=== PATIENT | male | born 1975 | race Hispanic/Latino ===

== ENCOUNTER 2020-05-12 19:46 | Emergency (ER) | payer BC, SELFPAY ==
--- OUTSIDE RECORDS SUMMARY | 2020-05-12 19:48 | XMS REPORT | Summary of Care ---
:1975 Author Organization [facility] Address [address] [place] [address] Care Team Providers Name Role Phone Pcp, Patient Does Not Have A Primary Care Provider +[id number] 0-0000 Reason for Referral MRI/CAT Scan (JUAN) Status Reason Specialty Diagnoses / Referred By Referred To Procedures Contact Contact Authorized Diagnostic Diagnoses Lower abdominal pain Lower abdominal pain Ashlee, Amanda, Radiology Procedures CT ABDOMEN WO CONTRAST CHG CT SCAN,ABDOMEN,W/O CONTRAST CT ABDOMEN WO CONTRAST LENS COATER [address] [address] Reason for Visit MRI/CAT Scan (JUAN) Status Reason Specialty Diagnoses / Referred By Referred To Procedures Contact Contact Authorized Diagnostic Diagnoses Lower abdominal pain Lower abdominal pain Ashlee, Amanda, Radiology Procedures CT ABDOMEN WO CONTRAST CHG CT SCAN,ABDOMEN,W/O CONTRAST CT ABDOMEN WO CONTRAST LENS COATER [address] [address] Encounter Details Date Type Department Care Team Description 04/08/2020 Hospital Encounter [facility] Amanda Rosado, Cancel ed ([facility] LENS COATER ERROR) Computed Tomography [address] [facility] [address] [phone] Allergies No Known Allergiesdocumented as of this encounter (statuses as of 04/09/2020) Medications Medication Sig Dispensed Refills Start Date End Date Status ondansetron (ZOFRAN Take 1 tablet by 15 tablet 0 09/11/2019 Active ODT) 4 mg mouth every 8 disintegrating (eight) hours as tabletIndications: needed for Nausea Diverticulitis and Vomiting (N/V) for up to 15 doses. traMADol 50 mg Take 1 tablet by 12 tablet 0 09/11/2019 Active tabletIndications: mouth every 6 Diverticulitis (six) hours as needed for Pain (scale 7-10) for up to 12 doses. documented as of this encounter (statuses as of 04/09/2020) Active Problems No known active problemsdocumented as of this encounter (statuses as of 04/09/2020) Social History Tobacco Use Types Packs/Day Years Used Date Never Smoker Smokeless Tobacco: Never Used Sex Assigned at Date Recorded Not on file Job Start Date Occupation Industry Not on file Not on file Not on file Travel History Travel Start Travel End No recent travel history available. COVID-19 Exposure Response Date Recorded In the last month, have you been in contact with Yes 04/08/2020 8:14 AM CDT someone who was confirmed or suspected to have Coronavirus / COVID-19? documented as of this encounter Last Filed Vital Signs Not on filedocumented in this encounter Plan of Treatment Name Type Priority Associated Diagnoses Order S chedule CT ABDOMEN WO CONTRAST IMAGING JUAN Lower abdominal pa in 1 Occurrences starting 04/08/2020 unti l 04/08/2020 Health Maintenance Due Date Last Done Comments DTaP,Tdap,and Td Vaccines (1 - 1988 Tdap) Depression Screening 1989 INFLUENZA VACCINE (#1) 2020 PNEUMOCOCCAL 0-64 YEARS COMBINED Aged Out No longer eligible based on SERIES patient's age to complete this topic documented as of this encounter Results Not on filedocumented in this encounter Visit Diagnoses Diagnosis Lower abdominal pain Abdominal pain, other specified site documented in this encounter Insurance Payer Benefit Plan Subscriber ID Effective Dates Phone Address Type / Group [id number] 2020-Prese [phone] [address] PPO/POS [place] [id number] [place] [address] documented as of this encounter
--- OUTSIDE RECORDS SUMMARY | 2020-05-12 19:48 | XMS REPORT | Continuity of Care Document ---
:1975 Author Organization [facility] t Address [address] [place] [address] Care Team Providers Name Role Phone Pcp, Does Not Have A Attending Clinician Lab, Fam Pob I Attending Clinician Unavailable Pob1, Care Clinic Attending Clinician Unavailable Problems This patient has no known problems. Allergies, Adverse Reactions, Alerts This patient has no known allergies or adverse reactions. Medications This patient has no known medications. Procedures This patient has no known procedures. Encounters Start End Encounter Admission Attending Care Care Encounter Source Date/Time Date/Time Type Type Clinicians Facility Department ID 2020-05-03 2020-05-03 Telephone [facility] [id number] 00:00:00 00:00:00 Patient JENA [id number] Does Not [facility] [id number] Have A [id number] 2020-05-02 2020-05-02 Laboratory Lab, [place] [id number] 16:42:03 17:02:03 Only Fam Pob I [facility] [id number] [place] [id number] Professio [phone] nal [address] 2020-04-13 2020-04-13 Telephone Pob1, Acute [facility] [id number] 00:00:00 00:00:00 [facility] [id number] [place] [id number] Professio [phone] nal [address] 2020-04-08 2020-04-11 Urgent Pob1, Acute [facility] [id number] 07:56:12 08:18:46 [facility] [id number] [place] [id number] [facility] [phone] [facility] [address] Results This patient has no known results.
--- OUTSIDE RECORDS SUMMARY | 2020-05-12 19:48 | XMS REPORT | Summary of Care ---
:1975 Author Organization [facility] Address [address] [place] [address] Care Team Providers Name Role Phone Pcp, Patient Does Not Have A Primary Care Provider +1-000-00 0-0000 Reason for Referral MRI/CAT Scan (JUAN) Status Reason Specialty Diagnoses / Referred By Referred To Procedures Contact Contact New Request Diagnostic Diagnoses Lower abdominal pain Anene, Amanda, Radiology Procedures CT ABDOMEN PELVIS WO CONTRAST TOOL AND DIE REPAIR [address] [address] MRI/CAT Scan (JUAN) Status Reason Specialty Diagnoses / Referred By Referred To Procedures Contact Contact Closed Diagnostic Diagnoses Lower abdominal pain Lower abdominal pain Anene, Amanda, Radiology Procedures CT ABDOMEN WO CONTRAST CHG CT SCAN,ABDOMEN,W/O CONTRAST CT ABDOMEN WO CONTRAST TOOL AND DIE REPAIR [address] [address] Reason for Visit Reason Comments Diarrhea x3 days Sore Throat x3 days Abdominal Pain x3 days Encounter Details Date Type Department Care Team Description 04/08/2020 Urgent Care [facility] Family Catrachita León PA [facility] [place] [address] Suspected Covid-19 Virus Infection (Prim elizabeth Dx); [facility] [place] [facility] [address], Acute Care Clinic Sore throat; [address] [place] [address] Diarrhea, unspecified type; [place] [address] Allergies No Known Allergiesdocumented as of this encounter (statuses as of 04/08/2020) Medications Medication Sig Dispensed Refills Start Date [...] as of this encounter (statuses as of 04/08/2020) Active Problems No known active problemsdocumented as of this encounter (statuses as of 04/08/2020) Social History Tobacco Use Types Packs/Day Years [...] of this encounter Last Filed Vital Signs Vital Sign Reading Time Taken Comments Blood Pressure 106/69 04/08/2020 8:16 AM CDT Pulse 61 04/08/2020 8:16 AM CDT Temperature 36.7 C (98 F) 04/08/2020 8:16 AM CDT Respiratory Rate 16 04/08/2020 8:16 AM CDT Oxygen Saturation 100% 04/08/2020 8:16 AM CDT Inhaled Oxygen Concentration - - Weight 68 kg (150 lb) 04/08/2020 8:16 AM CDT Height 172.7 cm (5' 8") 04/08/2020 8:16 AM CDT Body Mass Index 22.81 04/08/2020 8:16 AM CDT documented in this encounter Patient Instructions Patient InstructionsAmanda Rosado FNP - 04/08/2020 8:00 AM CDT Patient Education Treating Diarrhea Diarrhea happens when you have loose, watery, or frequent bowel movements. It is a common problem with many causes. Most cases of diarrhea clear up on their own. But certain cases may need treatment. Be sure to see your healthcare providerif your symptoms don't get better in a few days. Getting relief Treatment of diarrhea depends on its cause. Diarrhea caused by bacterial or parasite infection is often treated with antibiotics. Diarrhea caused by other factors, such as a stomach virus, often improves with simple home treatment. The tips below may also help ease your symptoms. Drink plenty of fluids. This helps prevent too much fluid loss (dehydration). Water, clear soups,and electrolyte solutions are good choices. Don't take alcohol, coffee, tea, or milk. These can irritate your intestines andmake symptoms worse. Suck on ice chips if drinking makes you queasy. Return to your normal diet slowly. You may want to eat bland foods at first, such as rice and toast. Also, you may need to stay away from certain foods for a while, such as dairy products. These canmake symptoms worse. Ask yourhealthcare providerif there are any other foods you should stay away from. If you were prescribed antibiotics, take them as directed. Don't take anti-diarrhea medicines without asking yourproviderfirst. Call your healthcare provider Call your healthcare provider if you have any of the following: A fever of 100.4 F ( 38.0C) or higher, or as directed by your provider Chills Severe pain Worsening diarrhea or diarrhea for more than 2 days Bloody vomit or stool Signs of dehydration (dizziness, dry mouth and tongue, rapid pulse, dark urine) Mamina Shkola last reviewed this educational content on 03/07/201919991767-5684 [employer]. [address] [place] [address]. All rights reserved. This information is not intended as a substitute for professional medical care. Always follow your healthcare professional's instructions. Patient Education Self-Care for Sore Throats Sore throats happen for many reasons, such as colds, allergies, cigarette smoke, air pollution, and infections caused by viruses or bacteria. In any case, your throat becomes red and sore. Your goal for self-care is to reduce your discomfort while giving your throat a chance to heal. Moisten and soothe your throat Tips include the following: Try a sip of water first thing after waking up. Keep your throat moist by drinking6 or more glasses of clear liquids every day. Run a cool-air humidifier in your room overnight. Stay away from cigarette smoke. Check the air quality index,if air pollution gives you a sore throat. On high pollution days, tryto limit outdoor time. Suck on throat lozenges, cough drops, hard candy, ice chips, or frozen fruit- juice bars. Use the sugar-free versions if your diet or medical condition requires them. Gargle to ease irritation Gargling every hour or2 can ease irritation. Try gargling with1 of these solutions: 1/4teaspoon of salt in1/2 cup of warm water An zfxq-jon-vfunaje anesthetic gargle Use medicine for more relief Cuhu-ewz-rsdskye medicine can reduce sore throat symptoms. Ask your pharmacist if you have questionsabout which medicine to use. To prevent possible medicine interactions, let the pharmacist know whatmedicines you take. To decrease symptoms: Ease pain with anesthetic sprays. Aspirin or an aspirin substitute also helps. Remember, never give aspirin to anyone 18 or younger. Don't take aspirin if you are alreadytaking blood thinners. For sore throats caused by allergies, try antihistamines to block the allergic reaction. Unless a sore throat is caused by a bacterial infection, antibiotics wont help you. Prevent future sore throats Prevention tips include: Stop smoking or reduce contact with secondhand smoke. Smoke irritates the tender throat lining. Limit contact with pets and with allergy-causing substances, such as pollen and mold. Wash your hands often when youre around someone with a sore throat or cold. This will keep viruses or bacteria from spreading. Limit outdoor time when air pollution is bad. Dont strain your vocal cords. When to call your healthcare provider Contact your healthcare provider if you have: Fever of 100.4F (38.0C) or higher, or as directed by your healthcare provider White spots on the throat Great Trouble swallowing A skin rash Recent exposure to someone else with strep bacteria Severe hoarseness and swollen glands in the neck or jaw Call 911 Call 911 if any of the following occur: Trouble breathing or catching your breath Drooling and problems swallowing Wheezing Unable to talk Feeling dizzy or faint Feeling of doom Mamina Shkola last reviewed this educational content on 06/07/201919993294-6795 [employer]. [address] [place] [address], [place] [address]. All rights reserved. This information is not intended as a substitute for professional medical care. Always follow your healthcare professional's instructions. documented in this encounter Progress Notes Amanda Rosado FNP - 04/08/2020 8:00 AM CDT Cc: Chief Complaint Patient presents with Diarrhea x3 days Sore Throat x3 days Abdominal Pain x3 days [place] Trivedi is a 44 year old male. Patient has a hx of diverticulitis, here with diarrhea, 2-3 loose stools per day with abdominal cramping. He also has some sore throat for about 4 day started as itchy throat, with no fever, chills, difficulty swallowing or any other associated symptoms. He has been in contact with someone with covid,and is here to also rule that out. Diarrhea Quality: Semi-solid Onset quality: Gradual Number of episodes: 2-3 Duration: 3 days Timing: Intermittent Progression: Improving Relieved by: Nothing Worsened by: Nothing Associated symptoms: abdominal pain and myalgias Associated symptoms: no chills, no fever and no headaches Abdominal pain: Location: Generalized Quality: cramping Severity: Moderate Onset quality: Gradual Timing: Constant Progression: Unchanged Chronicity: New Myalgias: Location: Generalized Quality: Aching Severity: Mild Onset quality: Gradual Timing: Intermittent Progression: Unchanged Risk factors: sick contacts Allergies Phoenix has No Known Allergies. Medications Outpatient Medications Prior to Visit Medication Sig Dispense Refill ondansetron (ZOFRAN ODT) 4 mg disintegrating tablet Take 1 tablet by mouth every 8 (eight) hoursas needed for Nausea and Vomiting (N/V) for up to 15 doses. 15 tablet 0 traMADol 50 mg tablet Take 1 tablet by mouth every 6 (six) hours as needed for Pain (scale 7-10)for up to 12 doses. 12 tablet 0 No facility-administered medications prior to visit. Histories No past medical history on file. No past surgical history on file. Social History Socioeconomic History Marital status: Single Spouse name: Not on file Number of children: Not on file Years of education: Not on file Highest education level: Not on file Occupational History Not on file Social Needs Financial resource strain: Not on file Food insecurity: Worry: Not on file Inability: Not on file Transportation needs: Medical: Not on file Non-medical: Not on file Tobacco Use Smoking status: Not on file Substance and Sexual Activity Alcohol use: Not on file Drug use: Not on file Sexual activity: Not on file Lifestyle Physical activity: Days per week: Not on file Minutes per session: Not on file Stress: Not on file Relationships Social connections: Talks on phone: Not on file Gets together: Not on file Attends mu-ism service: Not on file Active member of club or organization: Not on file Attends meetings of clubs or organizations: Not on file Relationship status: Not on file Intimate partner violence: Fear of current or ex partner: Not on file Emotionally abused: Not on file Physically abused: Not on file Forced sexual activity: Not on file Other Topics Concern Not on file Social History Narrative Not on file No family history on file. Review of Systems Constitutional: Negative. Negative for chills, fatigue and fever. HENT: Positive for sore throat. Negative for trouble swallowing and voice change. Respiratory: Negative. Negative for cough, chest tightness, shortness of breath and wheezing. Cardiovascular: Negative. Negative for chest pain and palpitations. Gastrointestinal: Positive for abdominal pain and diarrhea. Musculoskeletal: Positive for myalgias. Neurological: Negative. Negative for syncope, weakness, light-headedness and headaches. Psychiatric/Behavioral: Negative. Endocrine: Endocrine negative Vital Signs BP 106/69 (BP Location: Left arm, Patient Position: Sitting, BP CUFF SIZE: Adult Medium) | Pulse 61 | Temp 36.7 C (98 F) (Oral) | Resp 16 | Ht 5' 8" (1.727 m) | Wt 150 lb (68 kg) | SpO2 100%| BMI 22.81 kg/m Physical Exam Constitutional: He is oriented to person, place, and time. He appears well- developed. No distress. HENT: Head: Normocephalic. Right Ear: Hearing, tympanic membrane, external ear and ear canal normal. Left Ear: Hearing, tympanic membrane, external ear and ear canal normal. Nose: Nose normal. Right sinus exhibits no frontal sinus tenderness. Left sinus exhibits no maxillary sinus tenderness and no frontal sinus tenderness. Mouth/Throat: Uvula is midline, oropharynx is clear and moist and mucous membranes are normal. No oropharyngeal exudate, posterior oropharyngeal edema or posterior oropharyngeal erythema. No tonsillar exudate. Cardiovascular: Normal rate, regular rhythm, normal heart sounds and intact distal pulses. Exam reveals no gallop and no friction rub. No murmur heard. Pulmonary/Chest: Effort normal and breath sounds normal. No stridor. No respiratory distress. He hasno wheezes. He has no rales. He exhibits no tenderness. Abdominal: Soft. Bowel sounds are normal. Lymphadenopathy: Head (right side): No submental, no submandibular, no tonsillar, no preauricular and no posterior auricular adenopathy present. Head (left side): No submental, no submandibular, no tonsillar, no preauricular and no posterior auricular adenopathy present. He has no cervical adenopathy. Neurological: He is alert and oriented to person, place, and time. Skin: Skin is warm and dry. Capillary refill takes less than 2 seconds. Psychiatric: He has a normal mood and affect. Nursing note and vitals reviewed. Assessment/Plan 1. Sore throat and myalgia: POCT strep done and was negative. Dont smoke, and avoid secondhand smoke. Try lozenges OTC as directed Drink warm liquids to soothe the throat and help thin mucus. Avoid alcohol, spicy foods, and acidic drinks such as orange juice. These can irritate the throat. Gargle with warm saltwater (1 teaspoon of salt to 8 ounces of warm water). Use a humidifier to keep air moist and relieve throat dryness. Try mgnn-qhl-hkurdnp pain relievers such as acetaminophen or ibuprofen. Use as directed, and dont exceed the recommended dose. 2. Diarrhea and abdominal cramping: covid test done and pending. In the meantime, quarantine in place, treat symptoms with OTC meds, Tylenol as needed but no NSAIDs. Stay in quarantine until symptoms subsides, plus 3 days afterwards or until you hear otherwise. Follow up with your PCP as needed, and if with worsening of symptoms, any respiratory distress, go to the ER. Clinical references for Homecare instructions reviewed and copy given. 3. Abdominal pain: will get CBC, CMP, UA and culture as well as CT of the abdomen for further eval. If worse or new onset of symptoms, return to urgent care or ER. Plan of care, desired health behaviors, goals, and medication discussed with patient. Education resources provided and reviewed with AVS. Patient/guardian/family verbalized understanding & agrees to plan of care. This visit did not involve counseling and coordination that comprised more than 50% of the visit time. If applicable, the [facility] database was accessed to review any controlled substance prescription claims data. The [employer] prescription claims data in [employer] was reviewed to assess patient compliance with the medication treatment plan. documented in this encounter Plan of Treatment Date Type Specialty Care Team Description 04/08/2020 Hospital Encounter Radiology Nehemiah Rosado FNP Arrived [address] [place] [id number] Name Type Priority Associated Diagnoses Order S chedule COVID-19 (PCR MOLECULAR LAB Routine Suspected Covid-1 9 Expected: 04/08/2020, TESTING) Virus Infection Expires: 12/2020 CBC WITH DIFF LAB STAT Lower abdominal pain Expect ed: 04/08/2020, Expires: 2020 COMP. METABOLIC PANEL LAB Routine Lower abdominal yumiko n Ordered: 04/08/2020 ([id number]) URINALYSIS LAB Routine Lower abdominal pain Expecte d: 04/08/2020, Expires: 2020 URINE CULTURE LAB Routine Lower abdominal pain Ordere d: 04/08/2020 CT ABDOMEN WO CONTRAST IMAGING JUAN Lower abdominal pa in Expected: 04/08/2020, Expires: 2020 CT ABDOMEN PELVIS WO IMAGING JUAN Lower abdominal pain Expected: 04/08/2020, CONTRAST Expires: 2020 Health Maintenance Due Date Last Done Comments DTaP,Tdap,and Td Vaccines (1 - 1988 Tdap) Depression Screening 1989 INFLUENZA VACCINE (#1) 2020 PNEUMOCOCCAL 0-64 YEARS COMBINED Aged Out No longer eligible based on SERIES patient's age to complete this topic documented as of this encounter Procedures Procedure Name Priority Date/Time Associated Diagnosis Comme nts POCT GRP A STREP Routine 04/08/2020 8:32 AM Sore throat Resu lts for this (MOLECULAR) CDT procedure are i n the results section. documented in this encounter Results POCT GRP A STREP (MOLECULAR) (04/08/2020 8:32 AM CDT) Pathologist Sig nature POCT GP A STREP neg Negative - Negative Specimen Swab - THROAT documented in this encounter Visit Diagnoses Diagnosis Suspected Covid-19 Virus Infection - Zoë العراقي Sore throat Acute pharyngitis Diarrhea, unspecified type Lower abdominal pain Abdominal pain, other specified site documented in this encounter Insurance Payer Benefit Plan Subscriber ID Effective Dates Phone Address Type / Group BCBS [facility] [id number] 2020-Mila [phone] [address] PPO/POS [facility] [id number] [place] [address] documented as of this encounter
--- OUTSIDE RECORDS SUMMARY | 2020-05-12 19:48 | XMS REPORT | Summary of Care ---
:1975 Author Organization [facility] Address [address] [place] [address] Care Team Providers Name Role Phone Pcp, Patient Does Not Have A Primary Care Provider +[phone] 0-0000 Reason for Referral MRI/CAT Scan (JUAN) Status Reason Specialty Diagnoses / Referred By Referred To Procedures Contact Contact New Request Diagnostic Diagnoses Lower abdominal pain Amanda Rosado, Radiology Procedures CT ABDOMEN WO CONTRAST METER SUPERVISOR [address] [place] [phone] Reason for Visit Reason Comments Diarrhea x3 days Sore Throat x3 days Abdominal Pain x3 days Encounter Details Date Type Department Care Team Description 04/08/[address] [facility] Family Catrachita León PA [address] [place] [address] Suspected Covid-19 Virus Infection (Prim elizabeth Dx); [facility], Acute Care Clinic Sore throat; [address] [place] [address] Diarrhea, unspecified type; Drive [place] [address] Allergies No Known Allergiesdocumented as [...] mouth and tongue, rapid pulse, dark urine) [employer] last reviewed this educational content on 03/07/201919991151-0516 The [employer]. [address] [place] [address]. All rights reserved. This information is not [...] salt in1/2 cup of warm water An zbds-fwl-fhphzyd anesthetic gargle Use medicine for more relief Svmi-uui-oygwjzv medicine can reduce sore throat symptoms. Ask [...] Feeling dizzy or faint Feeling of doom Ver[employer] last reviewed this educational content on 06/07/201919992365-4907 The [employer]. [address] [place] [address], [place] [address]. All rights reserved. This information is not intended as a substitute for professional medical care. Always follow your healthcare professional's instructions. documented in this encounter Progress Notes Amanda oRsado FNP - 04/08/2020 8:00 AM CDT Cc: [...] file Gets together: Not on file Attends congregational service: Not on file Active member of [...] air moist and relieve throat dryness. Try nwaz-nzn-erprubr pain relievers such as acetaminophen or ibuprofen. [...] of the visit time. If applicable, the [facility] database was accessed to review any controlled substance prescription claims data. The [employer] prescription claims data in [place] was reviewed to assess patient compliance with the medication treatment plan. documented in this encounter Plan of Treatment Name Type Priority Associated Diagnoses Order S chedule COVID-19 (PCR MOLECULAR LAB Routine Suspected Covid-1 9 Expected: 04/08/2020, TESTING) Virus Infection Expires: 12/2020 CBC WITH DIFF LAB STAT Lower abdominal pain Expect ed: 04/08/2020, Expires: 2020 COMP. METABOLIC PANEL LAB Routine Lower abdominal yumiko n Ordered: 04/08/2020 ([id number]) URINALYSIS LAB Routine Lower abdominal pain Expecte d: 04/08/2020, Expires: 2020 URINE CULTURE LAB Routine Lower abdominal pain Ordere d: 04/08/2020 CT ABDOMEN WO CONTRAST IMAGING JUAN Lower abdominal pa in Expected: 04/08/2020, Expires: 2020 Health Maintenance Due Date Last [...] Diagnosis Suspected Covid-19 Virus Infection - Zoë malcom Sore throat Acute pharyngitis Diarrhea, unspecified type Lower abdominal pain Abdominal pain, other specified site documented in this encounter Insurance Payer Benefit Plan Subscriber ID Effective Dates Phone Address Type / Group BCBS OF [facility] [place] [id number] 2020-Prese [phone] [address] PPO/POS [place] nt 7 [id number] [place] [address] documented as of this encounter
--- OUTSIDE RECORDS SUMMARY | 2020-05-12 19:49 | XMS REPORT | Summary of Care ---
:1975 Author [address] [facility] Address [address] [place] [address] Care Team Providers Name Role Phone Pcp, Patient Does Not Have A Primary Care Provider +1-000-00 0-0000 Reason for Referral MRI/CAT Scan (JUAN) Status Reason Specialty Diagnoses / Referred By Referred To Procedures Contact Contact Closed Diagnostic Diagnoses Lower abdominal pain Lower abdominal pain Anene, Amanda, Radiology Procedures CT ABDOMEN PELVIS WO CONTRAST CHG CT SCAN,ABDOMENT AND PELVIS,W/O CONTRAST CT ABDOMEN PELVIS WO CONTRAST BRICK GRADER [address] [phone] MRI/CAT Scan (JUAN) Status Reason Specialty Diagnoses / Referred By Referred To Procedures Contact Contact Authorized Diagnostic Diagnoses Lower abdominal pain Lower abdominal pain Anene, Amanda, Radiology Procedures CT ABDOMEN WO CONTRAST CHG CT SCAN,ABDOMEN,W/O CONTRAST CT ABDOMEN WO CONTRAST BRICK GRADER [address] [address] Reason for Visit Reason Comments Diarrhea x3 days Sore Throat x3 days Abdominal Pain x3 days Encounter Details Date Type Department Care Team Description 04/08/2020 Urgent Care [facility] Family Catrachita León PA [address] [place] [address] [place] [address] Suspected Covid-19 Virus Infection (Prim elizabeth Dx); [place] [address], Acute Care Clinic Sore throat; [address] [place] [address] Diarrhea, unspecified type; Drive Lower abdominal pain; [place], [place] Acute diverticu litis [phone] Allergies No Known Allergiesdocumented as of this encounter (statuses as of 04/11/2020) Medications Medication Sig Dispensed Refills Start Date End Date Status ondansetron (ZOFRAN Take 1 tablet by 15 tablet 0 09/11/2019 Active ODT) 4 mg mouth every 8 disintegrating (eight) hours as tabletIndications: needed for Diverticulitis Nausea and Vomiting (N/V) for up to 15 doses. traMADol 50 mg Take 1 tablet by 12 tablet 0 09/11/2019 Active tabletIndications: mouth every 6 Diverticulitis (six) hours as needed for Pain (scale 7-10) for up to 12 doses. amoxicillin-clavulanat Take 1 tablet by 20 tablet 0 04/11/2020 04/21/2020 Active e (AUGMENTIN) 875-125 mouth 2 (two) mg per times daily for tabletIndications: 10 days. Acute diverticulitis documented as of this encounter (statuses as of 04/11/2020) Active Problems No known active problemsdocumented as of this encounter (statuses as of 04/11/2020) Social History Tobacco Use Types Packs/Day Years [...] in this encounter Patient Instructions Patient InstructionsAmanda Rosado, BRICK GRADER - 04/08/2020 8:00 AM CDT Patient Education [...] mouth and tongue, rapid pulse, dark urine) [employer] last reviewed this educational content on 03/07/201919996370-6957 The [employer]. [address] [place] [address], [place] [address]. All rights reserved. This information is not [...] salt in1/2 cup of warm water An wsnt-fsd-fcmpngc anesthetic gargle Use medicine for more relief Hdjg-two-eqftdse medicine can reduce sore throat symptoms. Ask [...] Feeling dizzy or faint Feeling of doom [employer] last reviewed this educational content on 06/07/201919990012-5658 [employer]. [address] [place] [address]. All rights reserved. This information is not [...] file Gets together: Not on file Attends gnosticism service: Not on file Active member of [...] air moist and relieve throat dryness. Try kapx-hal-zirbvzn pain relievers such as acetaminophen or ibuprofen. [...] of the visit time. If applicable, the [place] [employer] database was accessed to review any controlled substance prescription claims data. The [employer] prescription claims data in [email or web address] was reviewed to assess patient compliance with the medication treatment plan. documented in this encounter Plan of Treatment Name Type Priority Associated Diagnoses Order S chedule CBC WITH DIFF LAB STAT Lower abdominal pain Expect ed: 04/08/2020, Expires: 2020 COMP. METABOLIC PANEL LAB Routine Lower abdominal yumiko n Ordered: 04/08/2020 ([id number]) URINALYSIS LAB Routine Lower abdominal pain Expecte [...] procedure are i n the results section. COVID-19 (PCR Routine 04/08/2020 8:13 AM Suspected Covid-19 R esults for this MOLECULAR TESTING) CDT Virus Infection proced ure are in the results section. documented in this encounter Results CT ABDOMEN PELVIS WO CONTRAST (04/08/2020 9:59 AM CDT) Specimen Impressions Performed At PACS/VR/DOSE Findings of acute diverticulitis at the sigmoid colon. No extraluminal gas or fluid collection. Preliminary Report Dictated by Resident: Melvin Braga I, Kallie Cisneros MD., have reviewed this study and agree with the above report. Narrative Performed At EXAM: CT ABDOMEN AND PELVIS WITHOUT CONT RAST PACS/VR/DOSE HISTORY: Lower abdominal pain. Diverticu litis suspected. COMPARISON: CT Abdomen Pelvis with intra vpayof4709/11/2019. DOSE: Total exam DLP [243] mGy-cm TECHNIQUE AND FINDINGS: Contiguous axial imaging from the level of the lung bases through the pubic symphysis was pe rformed without the intravenous administration of contrast. Coronal and sagittal reconstructions were obtained. Auto mA and/or iterative rec onstruction were used to reduce radiation dose. FINDINGS: LOWER THORAX: The lungs bases are clear. No cardiomegaly. LIVER: No focal hepatic lesions. Kristine l liver contour. GALLBLADDER AND BILIARY TREE: No biliary ductal dilati on. No gallbladder wall thickening. SPLEEN: No splenomegaly. PANCREAS: No ductal dilation or masses. ADRENAL GLANDS: No adrenal nodules. KIDNEYS: No hydronephrosis, stones, or m asses. PERITONEUM AND RETROPERITONEUM: No free air or fluid. LYMPH NODES: No lymphadenopathy. GI TRACT: No dilated bowel. Sigmoid colon diverticulosis with se gment circumferential mural thickening with pericolonic inflammatory strandi ng, consistent with acute diverticulitis. The appendix is air-filled and mildly di stended and without significant periappendiceal inflammatory stranding. PELVIS/BLADDER: The urinary bladder is mildly distende d and the ahmdai are not significantly thickened with regard to the observed degree of distention. VESSELS: Unremarkable. BONES AND SOFT TISSUES: No suspicious ly tic or sclerotic bony lesions. A 2.2 cm mixed sclerotic and lytic lesio n within the right ilium, not significantly changed from comparison. T his lesion demonstrates a narrow zone of transition. This lesion may repr esent a bone island or fibrous dysplasia. Procedure Note [facility], Radiant Results Inft User - 2019 7:05 PM CDT EXAM: CT ABDOMEN AND PELVIS WITHOUT CONTRAST HISTORY: Lower abdominal pain. Diverticu litis suspected. COMPARISON: CT Abdomen Pelvis with intra duuzro3909/11/2019. DOSE: Total exam DLP [243] mGy-cm TECHNIQUE AND FINDINGS: Contiguous axial imaging from the level of the lung bases through the pubic symphysis was pe rformed without the intravenous administration of contrast. Coronal and sagittal reconstructions were obtained. Auto mA and/or iterative judi nstruction were used to reduce radiation dose. FINDINGS: LOWER THORAX: The lungs bases are clear. No cardiomegaly. LIVER: No focal hepatic lesions. Normal liver contour. GALLBLADDER AND BILIARY TREE: No biliary ductal dilation. No gallbladder wall thickening. SPLEEN: No splenomegaly. PANCREAS: No ductal dilation or masses. ADRENAL GLANDS: No adrenal nodules. KIDNEYS: No hydronephrosis, stones, or m asses. PERITONEUM AND RETROPERITONEUM: No free air or fluid. LYMPH NODES: No lymphadenopathy. GI TRACT: No dilated bowel. Sigmoid colon divertic ulosis with segment circumferential mural thickening with pericolonic inflam matory stranding, consistent with acute diverticulitis. The appendix is air-filled and mildly di stended and without significant periappendiceal inflammatory stranding. PELVIS/BLADDER: The urinary bladder is m ildly distended and the ahmadi are not significantly thickened with regard to the observed degree of distention. VESSELS: Unremarkable. BONES AND SOFT TISSUES: No suspicious ly tic or sclerotic bony lesions. A 2.2 cm mixed sclerotic and lytic lesio n within the right ilium, not significantly changed from comparison. T his lesion demonstrates a narrow zone of transition. This lesion may repr esent a bone island or fibrous dysplasia. IMPRESSION Findings of acute diverticulitis at the sigmoid colon. No extraluminal gas or fluid collection. Preliminary Report Dictated by Resident: Melvin Braga I, Kallie Cisneros MD., have reviewed this study and agree with the above report. Performing Organization Address City/State/Zipcode Phone Number PACS/VR/DOSE POCT GRP A STREP (MOLECULAR) (04/08/2020 8:32 AM CDT) Pathologist Sig nature POCT GP A STREP neg Negative - Negative Specimen Swab - THROAT COVID-19 (PCR MOLECULAR TESTING) (04/08/2020 8:13 AM CDT) Pathologist Sig [facility] SARS-CoV-2 PCR Not Detected Not Detected [facility] Specimen Swab - NASOPHARYNGEAL SWAB Narrative Performed At [facility] SARS-CoV-2 Assay is a real-time RT-PCR test [facility] intended for the qualitative detection of RNA from SARS-CoV-2 from nasopharyngeal (SURVEYOR GEOPHYSICAL PROSPECTING) specimens. It is u sed under Emergency Use Authorization (EUA) by FDA. A positive result is indicative of the presence of SARS-CoV-2 RNA. Clinical correlation with patient hi story and other diagnostic information is necessary to deter mine patient infection status. A negative (Not Detected) result does not preclude SARS-CoV-2 infection. Clinical correlation with patien t history and other diagnostic information should be use d in patient management decisions. Invalid: Please collect a new specimen for repeat mechelle ent testing if clinically indicated. Performing Organization Address City/State/Zipcode Phone Number [facility] CLIA: [id number], [address] [place], [place] [address] [facility] documented in this encounter Visit Diagnoses Diagnosis Suspected Covid-19 Virus Infection - Zoë العراقي Sore throat Acute pharyngitis Diarrhea, unspecified type Lower abdominal pain Abdominal pain, other specified site Acute diverticulitis documented in this encounter Insurance Payer Benefit Plan Subscriber ID Effective Dates Phone Address Type / Group [facility] [id number] 2020-Prese [phone] [address] PPO/POS [place] nt 7 [id number] [place] [address] documented as of this encounter
--- OUTSIDE RECORDS SUMMARY | 2020-05-12 19:49 | XMS REPORT | Summary of Care ---
:1975 Author Organization [facility] Address [address] [place] [address] Care Team Providers Name Role Phone Pcp, Patient Does Not Have A Primary Care Provider +1-000-00 0-0000 Reason for Visit Reason Comments Exposure Encounter Details Date Type Department Care Team Description 05/02/2020 Laboratory Only [facility] Family Nehemiah Rosado, CAREER DEVELOPMENT ASSOCIATE [address] [address] Suspected Covid-19 Medicine - [facility], Adc Fam Pob I Virus Infection [address] [place] [address] (Primary D x) [place] [address] Allergies No Known Allergiesdocumented as of this encounter (statuses as of 05/02/2020) Medications Medication Sig Dispensed Refills Start Date [...] as of this encounter (statuses as of 05/02/2020) Active Problems No known active problemsdocumented as of this encounter (statuses as of 05/02/2020) Social History Tobacco Use Types Packs/Day Years [...] (PCR MOLECULAR LAB Routine Suspected Covid-1 9 Virus Expected: 05/02/2020, TESTING) Infection Expires: 2020 Health Maintenance Due Date Last Done Comments DTaP,Tdap,and Td Vaccines (1 - 1988 Tdap) Depression Screening 1989 INFLUENZA VACCINE (#1) 2020 PNEUMOCOCCAL 0-64 YEARS COMBINED Aged Out No longer eligible based on SERIES patient's age to complete this topic documented as of this encounter Results Not on filedocumented in this encounter Visit Diagnoses Diagnosis Suspected Covid-19 Virus Infection - [facility] documented in this encounter Additional Health Concerns Infection Onset Date Last Indicated Resolved Time COVID-19 Rule Out 05/02/2020 05/02/2020 documented as of this encounter Insurance Payer Benefit Plan Subscriber ID Effective Dates Phone Address Type / Group BCBS [facility] [id number] 2020-Prese [phone] [address] PPO/POS [place] nt 7 [id number] [place] [address] documented as of this encounter
--- OUTSIDE RECORDS SUMMARY | 2020-05-12 19:49 | XMS REPORT | Summary of Care ---
:1975 Author Organization [facility] Address [address] [place] [address] Care Team Providers Name Role Phone Pcp, Patient Does Not Have A Primary Care Provider +1-000-00 0-0000 Reason for Visit Reason Comments Results Encounter Details Date Type Department Care Team Description 05/03/2020 Telephone [facility] Pcp, Patient Does Not Results [address] [facility] [place] [address] 301 [facility] [phone] [place], [place] [address] Allergies No Known Allergiesdocumented as of this encounter (statuses as of 05/03/2020) Medications Medication Sig Dispensed Refills Start Date [...] as of this encounter (statuses as of 05/03/2020) Active Problems No known active problemsdocumented as of this encounter (statuses as of 05/03/2020) Social History Tobacco Use Types Packs/Day Years [...] filedocumented in this encounter Plan of Treatment Health Maintenance Due Date Last Done Comments DTaP,Tdap,and Td Vaccines (1 - 1988 Tdap) Depression Screening 1989 INFLUENZA VACCINE (#1) 2020 PNEUMOCOCCAL 0-64 YEARS COMBINED Aged Out No longer eligible based on SERIES patient's age to complete this topic documented as of this encounter Results Not on filedocumented in this encounter Additional Health Concerns Infection Onset Date Last Indicated Resolved Time COVID-19 Rule Out 05/02/2020 05/02/2020 05/03/2020 1: 55 PM CDT COVID-19 Confirmed 05/02/2020 05/02/2020 documented as of this encounter Insurance Payer Benefit Plan Subscriber ID Effective Dates Phone Address Type / Group BCBS OF [facility] [id number] 2020-[place] [phone] [address] PPO/POS [facility] 7 [id number] [place] [address] documented as of this encounter
--- OUTSIDE RECORDS SUMMARY | 2020-05-12 19:49 | XMS REPORT | Summary of Care ---
:1975 Author Organization [facility] Address [address] [place] [address] Care Team Providers Name Role Phone Pcp, [...] PELVIS,W/O CONTRAST CT ABDOMEN PELVIS WO CONTRAST ARMATURE WINDER REPAIRER [address] [address] Reason for Visit MRI/CAT Scan (JUAN) Status Reason Specialty Diagnoses / Referred By Referred To Procedures Contact Contact Closed Diagnostic Diagnoses Lower abdominal pain Lower abdominal pain Anene, Amanda, Radiology Procedures CT ABDOMEN PELVIS WO CONTRAST CHG CT SCAN,ABDOMENT AND PELVIS,W/O CONTRAST CT ABDOMEN PELVIS WO CONTRAST ARMATURE WINDER REPAIRER [address] [address] Encounter Details Date Type Department Care Team Description 04/08/2020 Hospital Encounter [facility] Nathanael Rosado, ARMATURE WINDER REPAIRER Arrived [facility] [address] Tomography [address] [place] [address] Allergies No Known Allergiesdocumented as of [...] Name Priority Date/Time Associated Diagnosis Comme nts CT ABDOMEN PELVIS JUAN 04/08/2020 9:59 AM Lower abdominal pain Results for this WO CONTRAST CDT procedure are i n the results [...] suspected. COMPARISON: CT Abdomen Pelvis with intra [id number]/11/2019. DOSE: Total exam DLP [243] mGy-cm TECHNIQUE [...] bladder is mildly distende d and the ahmadi are not significantly thickened [...] suspected. COMPARISON: CT Abdomen Pelvis with intra [id number]/11/2019. DOSE: Total exam DLP [243] mGy-cm TECHNIQUE [...] Performing Organization Address City/State/Zipcode Phone Number PACS/VR/DOSE documented in this encounter Visit Diagnoses Diagnosis Lower abdominal pain Abdominal pain, other specified site documented in this encounter Insurance Payer Benefit Plan Subscriber ID Effective Dates Phone Address Type / Group [facility] [id number] 2020-Prese [phone] [address] PPO/POS [place] nt 7 [id number] [place] [address] documented as of this encounter
--- OUTSIDE RECORDS SUMMARY | 2020-05-12 19:49 | XMS REPORT | Summary of Care ---
:1975 Author Organization [facility] Address [address] [place] [address] Care Team Providers Name Role Phone Pcp, Patient Does Not Have A Primary Care Provider +1-000-00 0-0000 Reason for Visit Reason Comments Results Encounter Details Date Type Department Care Team Description 04/13/2020 Telephone [facility] Pob1, Acute C are Clinic Results - [address] [place] [address] Allergies No Known Allergiesdocumented as of this encounter (statuses as of 04/13/2020) Medications Medication Sig Dispensed Refills Start Date [...] as of this encounter (statuses as of 04/13/2020) Active Problems No known active problemsdocumented as of this encounter (statuses as of 04/13/2020) Social History Tobacco Use Types Packs/Day Years [...] Results Not on filedocumented in this encounter Insurance Payer Benefit Plan Subscriber ID Effective Dates Phone Address Type / Group BCBS OF [facility] [id number] 2020-Prese [phone] [address] PPO/POS [facility] 7 [id number] [place] [address] documented as of this encounter
[2020-05-12] MEDS ORDERED: ONDANSETRON 4 MG/2 ML VIAL ONE (21:12)
[2020-05-12] MEDS ORDERED: MORPHINE 4 MG/ML SYR ONE (21:12)
[2020-05-12 21:25] LABS: Urine RBC <5 /HPF (NONE SEEN)
[2020-05-12 21:26] LABS: Urine Blood NEGATIVE (NEG); Urine Glucose NEGATIVE (NEG); Urine Protein NEGATIVE (NEG); Urine Specific Gravity >1.030 (1.005-1.030); Urine pH 6.5 (5.0-7.0)
[2020-05-12 21:26] LABS: Urine Bacteria NONE SEEN /HPF (NONE SEEN); Urine Culture Reflex Order NOT NEEDED; Urine Mucus 1+ /HPF (NONE SEEN)
--- NOTE | 2020-05-12 21:29 | RAD REPORT ---
EXAM DESCRIPTION: CT - Stone Protocol - 05/12/2020 9:13 pm CLINICAL HISTORY: Flank pain. ABD PAIN COMPARISON: Abdomen Pelvis W Contrast dated 05/30/2019 TECHNIQUE: Axial images were obtained without oral or IV contrast. Lack of contrast limits solid org an and vascular assessment. The lfupz-aa-nakq spans the entirety of the system partially obscuring uppermost abdomen and lung bases. Coronal reformatted images were obtained and reviewed. All CT scans are performed using dose optimization technique as appropriate and may include automated exposure control or mA/KV adjustment according to patient size. FINDINGS: The lower lung brunner are clear. Imaged portions of the liver and spleen show no suspicious findings on non-contrast imaging. The panc reas and adrenal glands are normal. No pathologic lymphadenopathy in the abdomen or pelvis. No urinary tract stones or obstructive uropathy. No bowel obstruction, free air, free fluid or abscess. Normal appendix noted.Moderate stool in the co debra with sigmoid diverticulosis. Moderate fecal retention is present in the rectosigmoid No significant bony abnormality. IMPRESSION: No urinary tract stones or obstructive uropathy. Sigmoid diverticulosis coli without diverticulitis. Moderate retained stool rectosigmoid.
[2020-05-12 21:32] LABS: Absolute Lymphocytes (CBC) 2.4 K/uL (0.7-4.9); Hematocrit 42.4 % (39.6-49.0); Lymphocytes % 32.3 % (15.3-44.8); MPV 9.2 fL (7.6-11.3); Potassium 3.8 mmol/L (3.5-5.1); RBC Red Blood Cell Count 4.87 M/uL (4.33-5.43)
[2020-05-12] MEDS ORDERED: FENTANYL CITR 100 MCG/2 ML ONE (21:41)
[2020-05-12] MEDS ORDERED: NA CHLORIDE 0.9% 1,000 ML ONE (21:48)
--- NOTE | 2020-05-12 22:18 | ER ---
Nurse's Notes [facility] Name: Phoenix Trivedi Age: 45 yrs Sex: Male : 1975 Arrival Date: 05/12/2020 Time: 19:47 Bed 30 Private MD: Diagnosis: Urethritis and urethral syndrome Presentation: 05/12 20:23 Chief complaint: Patient states: Only dribbling when trying to urinate for past 3 days. ll1 Severe lower abdominal pain. No fever. Coronavirus screen: Client denies travel out of the [place] in the last 14 days. At this time, the client does not indicate any symptoms associated with coronavirus-19. The client reports previous COVID testing was negative. Ebola Screen: Patient denies travel to an Ebola-affected area in the 21 days before illness onset. Initial Sepsis Screen: Does the patient meet any 2 criteria? No. Patient's initial sepsis screen is negative. Risk Assessment: Do you want to hurt yourself or someone else? Patient reports no desire to harm self or others. Onset of symptoms was May 10, 2020. 20:23 Method Of Arrival: Ambulatory ll1 20:23 Acuity: SIVAKUMAR 3 ll1 20:30 Initial Sepsis Screen: Does the patient have a suspected source of infection? Yes: rr5 Dysuria/Frequency/Urgency/UTI. Historical: - Allergies: 20:23 No Known Allergies; ll1 - Home Meds: 20:25 None [Active]; rr5 - PMHx: 20:25 Diverticulitis; rr5 - PSHx: 20:23 None; ll1 - Immunization history:: Flu vaccine is not up to date. - Social history:: Smoking status: Patient denies any tobacco usage or history of. Patient uses alcohol, street drugs, marijuana. Screenin:00 Fall Risk IV access (20 points). Total Khan Fall Scale indicates No Risk (0-24 pts). rr5 22:53 Abuse screen: Denies threats or abuse. Denies injuries from another. Nutritional rr5 screening: No deficits noted. Tuberculosis screening: No symptoms or risk factors identified. Assessment: 20:30 General: Appears in no apparent distress. uncomfortable, Behavior is calm, cooperative. rr5 20:30 Pain: Complains of pain in right lower quadrant and left lower quadrant Pain currently rr5 is 10 out of 10 on a pain scale. Quality of pain is described as aching, Pain began gradually, Is intermittent. Neuro: Level of Consciousness is awake, alert, obeys commands, Oriented to person, place, time, situation. Cardiovascular: Capillary refill < 3 seconds Patient's skin is warm and dry. Respiratory: Airway is patent Respiratory effort is even, unlabored, Respiratory pattern is regular, symmetrical. GI: Abdomen is flat, Reports lower abdominal pain. : Reports inability to void. EENT: No signs and/or symptoms were reported regarding the EENT system. Derm: Skin is intact, is healthy with good turgor, Skin temperature is warm. Musculoskeletal: Circulation, motion, and sensation intact. Capillary refill < 3 seconds. 21:23 Reassessment: Patient appears in no apparent distress at this time. back from CT scan, rr5 still in pain ED provider aware with order made and carried out Patient states symptoms have not improved. 21:46 Reassessment: Patient appears in no apparent distress at this time. Patient is alert, rr5 oriented x 3, equal unlabored respirations, skin warm/dry/pink. Patient states feeling better. Patient states symptoms have improved. 22:50 Reassessment: Patient appears in no apparent distress at this time. Patient is alert, rr5 oriented x 3, equal unlabored respirations, skin warm/dry/pink. discharge instruction given and explained without complaints made. Vital Signs: 20:23 BP 151 / 113; Pulse 67; Resp 17; Temp 98.1; Pulse Ox 100% ; Pain 10/10; ll1 21:47 BP 106 / 82; Pulse 80; Resp 17; Pulse Ox 99% ; Pain 4/10; rr5 22:53 BP 104 / 70; Pulse 75; Resp 16; Pulse Ox 99% ; Pain 3/10; rr5 ED Course: 19:47 Patient arrived in ED. cl3 20:25 Triage completed. ll1 20:25 Arm band placed on Patient notified of wait time. ll1 20:25 Patient has correct armband on for positive identification. Placed in gown. Bed in low rr5 position. Call light in reach. 20:33 Joan Crawford FNP-C is [facility]. kb 20:33 Hayden Daley MD is Attending Physician. kb 20:45 Levy, Maicol, RN is Primary Nurse. rr5 20:54 Bladder scan completed. 63 ML ED provider aware. rr5 21:05 Inserted saline lock: 20 gauge in right forearm, using aseptic technique. Blood rr5 collected. 22:53 No provider procedures requiring assistance completed. IV discontinued, intact, rr5 bleeding controlled, No redness/swelling at site. Pressure dressing applied. Administered Medications: 21:05 Drug: Zofran (Ondansetron) 4 mg Route: IVP; Site: right forearm; rr5 21:35 Follow up: Response: No adverse reaction rr5 21:07 Drug: morphine 4 mg {Note: rass 0.} Route: IVP; Site: right forearm; rr5 21:35 Follow up: Response: No adverse reaction; No change in condition; RASS: Alert and Calm rr5 (0) 21:34 Drug: fentaNYL (PF) 50 mcg {Note: rass 0.} Route: IVP; Site: right forearm; rr5 22:30 Follow up: Response: No adverse reaction; RASS: Alert and Calm (0) rr5 21:39 Drug: NS 0.9% 1000 ml Route: IV; Rate: 1000 ml; Site: right forearm; rr5 22:30 Follow up: Response: No adverse reaction; IV Status: Completed infusion; IV Intake: rr5 1000ml 22:20 Drug: Doxycycline 100 mg Route: PO; rr5 22:54 Follow up: Response: No adverse reaction rr5 22:21 Drug: Rocephin 1 grams Route: IV; Rate: calculated rate; Site: right forearm; rr5 22:54 Follow up: Response: No adverse reaction; IV Status: Completed infusion; IV Intake: [id number] Intake: 22:30 IV: 1000ml; Total: 1000ml. rr5 22:54 IV: 10ml; Total: 1010ml. rr5 Outcome: 22:18 Discharge ordered by . sarahi 22:53 Discharged to home ambulatory. rr5 22:53 Condition: stable 22:53 Discharge instructions given to patient, Instructed on discharge instructions, follow up and referral plans. medication usage, Demonstrated understanding of instructions, follow-up care, medications, Prescriptions given X 1. 22:56 Patient left the ED. rr5 Signatures: Joan Crawford FNP-C FNP-Maicol Guillen RN RN rr5 Natalie Whatley cl3 Chacorta, Lynsay, RN RN ll1 Corrections: (The following items were deleted from the chart) 20:27 20:23 Chief complaint: Patient states: Urinary frequency with oliguria for 3 days. Only ll1 dribbling when trying to urinate. ll1
--- NOTE | 2020-05-12 22:18 | EDPHYS ---
Physician Documentation [facility] Name: Phoenix Trivedi Age: 45 yrs Sex: Male : 1975 Arrival Date: 05/12/2020 Time: 19:47 Bed 30 Private MD: ED Physician Hayden Daley HPI: 05/12 21:01 This 45 yrs old Male presents to ER via Ambulatory with complaints of Urinary kb Retention. 21:02 The patient presents with urinary symptoms, urinary frequency. Onset: The kb symptoms/episode began/occurred 3 day(s) ago. Modifying factors: The symptoms are alleviated by nothing, the symptoms are aggravated by nothing. Associated signs and symptoms: The patient has no apparent associated signs or symptoms. Severity of symptoms: At their worst the symptoms were severe, in the emergency department the symptoms are unchanged. The patient has not experienced similar symptoms in the past. The patient has not recently seen a physician. Pt reports frequency, small amount, urgency and pain to suprapubic area for 3 days. Denies burning with urination. . Historical: - Allergies: 20:23 No Known Allergies; ll1 - Home Meds: 20:25 None [Active]; rr5 - PMHx: 20:25 Diverticulitis; rr5 - PSHx: 20:23 None; ll1 - Immunization history:: Flu vaccine is not up to date. - Social history:: Smoking status: Patient denies any tobacco usage or history of. Patient uses alcohol, street drugs, marijuana. ROS: 20:58 Constitutional: Negative for fever, chills, and weight loss, Cardiovascular: Negative kb for chest pain, palpitations, and edema, Respiratory: Negative for shortness of breath, cough, wheezing, and pleuritic chest pain, Back: Negative for injury and pain, MS/Extremity: Negative for injury and deformity, Skin: Negative for injury, rash, and discoloration, Neuro: Negative for headache, weakness, numbness, tingling, and seizure. 20:58 Abdomen/GI: Positive for abdominal pain, Negative for nausea, vomiting, and diarrhea. 20:58 : Positive for urinary frequency, small amounts. Exam: 21:00 Constitutional: This is a well developed, well nourished patient who is awake, alert, kb and in no acute distress. Head/Face: Normocephalic, atraumatic. Chest/axilla: Normal chest wall appearance and motion. Nontender with no deformity. No lesions are appreciated. Cardiovascular: Regular rate and rhythm with a normal S1 and S2. No gallops, murmurs, or rubs. Normal PMI, no JVD. No pulse deficits. Respiratory: Lungs have equal breath sounds bilaterally, clear to auscultation and percussion. No rales, rhonchi or wheezes noted. No increased work of breathing, no retractions or nasal flaring. Back: No spinal tenderness. No costovertebral tenderness. Full range of motion. Skin: Warm, dry with normal turgor. Normal color with no rashes, no lesions, and no evidence of cellulitis. MS/ Extremity: Pulses equal, no cyanosis. Neurovascular intact. Full, normal range of motion. Neuro: Awake and alert, GCS 15, oriented to person, place, time, and situation. Cranial nerves II-XII grossly intact. Motor strength 5/5 in all extremities. Sensory grossly intact. Cerebellar exam normal. Normal gait. 21:00 Abdomen/GI: Inspection: abdomen appears normal, Bowel sounds: normal, in all quadrants, Palpation: moderate abdominal tenderness, in the suprapubic area. Vital Signs: 20:23 BP 151 / 113; Pulse 67; Resp 17; Temp 98.1; Pulse Ox 100% ; Pain 10/10; ll1 21:47 BP 106 / 82; Pulse 80; Resp 17; Pulse Ox 99% ; Pain 4/10; rr5 22:53 BP 104 / 70; Pulse 75; Resp 16; Pulse Ox 99% ; Pain 3/10; rr5 MDM: 20:35 Patient medically screened. kb 21:00 Data reviewed: vital signs, nurses notes. Data interpreted: Pulse oximetry: on room air kb is 100 %. Interpretation: normal. 22:15 Counseling: I had a detailed discussion with the patient and/or guardian regarding: the kb historical points, exam findings, and any diagnostic results supporting the discharge/admit diagnosis, lab results, radiology results, the need for outpatient follow up, a family practitioner, a urologist, to return to the emergency department if symptoms worsen or persist or if there are any questions or concerns that arise at home. 05/12 20:55 Order name: Basic Metabolic Panel kb 05/12 20:55 Order name: CBC with Diff kb 05/12 21:00 Order name: Urine Microscopic Only kb 05/12 21:03 Order name: Urine Dipstick--Ancillary (enter results) mw2 05/12 21:26 Order name: Urine Microscopic Only; Complete Time: 21:33 EDMS 05/12 21:26 Order name: Urine Dipstick-Ancillary; Complete Time: 21:33 EDMS 05/12 20:55 Order name: CT Stone Protocol kb 05/12 21:30 Order name: CT; Complete Time: 21:33 EDMS 05/12 21:33 Order name: Basic Metabolic Panel; Complete Time: 21:33 EDMS 05/12 21:53 Order name: CBC with Automated Diff; Complete Time: 21:54 EDMS 05/12 20:30 Order name: Bladder Scanner; Complete Time: 20:54 kb 05/12 20:33 Order name: Urine Dipstick-Ancillary (obtain specimen); Complete Time: 21:24 kb 05/12 20:55 Order name: IV Saline Lock; Complete Time: 21:24 kb 05/12 20:55 Order name: Labs collected and sent; Complete Time: 21:24 kb Administered Medications: 21:05 Drug: Zofran (Ondansetron) 4 mg Route: IVP; Site: right forearm; rr5 21:35 Follow up: Response: No adverse reaction rr5 21:07 Drug: morphine 4 mg {Note: rass 0.} Route: IVP; Site: right forearm; rr5 21:35 Follow up: Response: No adverse reaction; No change in condition; RASS: Alert and Calm rr5 (0) 21:34 Drug: fentaNYL (PF) 50 mcg {Note: rass 0.} Route: IVP; Site: right forearm; rr5 22:30 Follow up: Response: No adverse reaction; RASS: Alert and Calm (0) rr5 21:39 Drug: NS 0.9% 1000 ml Route: IV; Rate: 1000 ml; Site: right forearm; rr5 22:30 Follow up: Response: No adverse reaction; IV Status: Completed infusion; IV Intake: rr5 1000ml 22:20 Drug: Doxycycline 100 mg Route: PO; rr5 22:54 Follow up: Response: No adverse reaction rr5 22:21 Drug: Rocephin 1 grams Route: IV; Rate: calculated rate; Site: right forearm; rr5 22:54 Follow up: Response: No adverse reaction; IV Status: Completed infusion; IV Intake: [id number] Disposition: 05/13 04:33 Co-signature as Attending Physician, Hayden Daley MD. [email or web address] Disposition: 05/12/20 22:18 Discharged to Home. Impression: Urethritis and urethral syndrome. - Condition is Stable. - Discharge Instructions: Urethritis, Adult. - Prescriptions for Doxycycline Hyclate 100 mg Oral Tablet - take 1 tablet by ORAL route every 12 hours; 20 tablet. - Medication Reconciliation Form, Thank You Letter, Antibiotic Education, Prescription Opioid Use form. - Follow up: Emergency Department; When: As needed; Reason: Worsening of condition. Follow up: Private Physician; When: 2 - 3 days; Reason: Recheck today's complaints, Continuance of care, Re-evaluation by your physician. Signatures: Dispatcher [employer] EDMS Joan Crawford, ARLEEN-C CHOKE REAMER-Maicol Guillen RN RN rr5 Gold Wahtley RN RN ll1 Hayden Daley MD MD 7 Corrections: (The following items were deleted from the chart) 05/12 22:56 22:18 05/12/2020 22:18 Discharged to Home. Impression: Urethritis and urethral rr5 syndrome. Condition is Stable. Forms are Medication Reconciliation Form, Thank You Letter, Antibiotic Education, Prescription Opioid Use. Follow up: Emergency Department; When: As needed; Reason: Worsening of condition. Follow up: Private Physician; When: 2 - 3 days; Reason: Recheck today's complaints, Continuance of care, Re-evaluation by your physician. kb
[2020-05-12] MEDS ORDERED: CEFTRIAXONE/SWI 1gm 1 GM/10 ML SYR ONE (22:39)
[2020-05-12] MEDS ORDERED: DOXYCYCLINE 100 MG CAP PO ONE (22:39)
[2020-05-12 23:04] VITALS: TEMP 98.1
[2020-05-12 23:06] VITALS: O2SAT 99
[2020-05-12 23:07] VITALS: BP 104/70
== END 2020-05-12 22:56 | disposition home or self-care (01) ==
LOC: ER 19:46
DX: N34.3 Urethral syndrome, unspecified (principal)
CPT/HCPCS: 96365; 96361; 85025; 80048; 36415; 76377; 74176; 96375; 99284; J3010; J0696; J7030; J2405; 81003; 81015

== ENCOUNTER 2021-04-29 05:45 | Emergency (ER) | payer BC, OTHER ==
--- OUTSIDE RECORDS SUMMARY | 2021-04-29 05:47 | XMS REPORT | Continuity of Care Document ---
:1975 Author Organization [facility] t Address [address] [place] [address] Care Team Providers Name Role Phone Haney DO Attending Clinician Doctor Unassigned, Name Attending Clinician Unavailable Pcp, Does Not Have A Attending Clinician [...] Date/Time Type Type Clinicians Facility Department ID 2021-03-02 2021-03-02 Emergency Singer [facility] [id number] 09:14:00 10:27:00 Juan J Nagel [id number] [place] [id number] [place] [id number] 2021-03-02 2021-03-02 Orders Doctor [facility]I [id number] 00:00:00 00:00:00 Only Unassigned, J[place] [id number] [place] [facility] [id number] 2020-05-03 2020-05-03 Telephone PcpORI [id number] 00:00:00 00:00:00 Patient JENA [id number] Does Not HOSPITAL [id number] Have A [id number] 2020-05-02 2020-05-02 Laboratory Lab, Adc [facility] [id number] 16:42:03 17:02:03 Only Fam [facility] [id number] [place] [id number] [facility] [phone] [address] [address] 2020-04-13 2020-04-13 Telephone Pob1, Acute [facility] [id number] 00:00:00 00:00:00 [facility] [id number] [place] [id number] [facility] [id number] [address] 2020-04-08 2020-04-11 Urgent Pob1, Acute [facility] [id number] 07:56:12 08:18:46 [facility] [id number] [place] [id number] [facility] [phone] [address] [address] Results This patient has no known results.
[2021-04-29 06:35] LABS: Absolute Lymphocytes (CBC) 1.2 K/uL (0.7-4.9); Basophils % 0.6 % (0-1.3); Hematocrit 38.7 % (39.6-49.0); Lymphocytes % 10.4 % (15.3-44.8); MPV 8.3 fL (7.6-11.3); RBC Red Blood Cell Count 4.33 M/uL (4.33-5.43)
[2021-04-29 06:46] LABS: Albumin 3.5 g/dL (3.4-5.0); Bilirubin Direct 0.1 mg/dL (0-0.2); Bilirubin Total 0.3 mg/dL (0.2-1.0); Potassium 4.1 mmol/L (3.5-5.1); Protein, Total 7.3 g/dL (6.4-8.2)
--- NOTE | 2021-04-29 07:20 | RAD REPORT ---
EXAM DESCRIPTION: CT - Abdomen Pelvis W Contrast - 04/29/2021 7:03 am CLINICAL HISTORY: Abdominal pain COMPARISON: 2019 TECHNIQUE: Computed axial tomography of the abdomen pelvis was obtained. 100 cc Isovue-300 was admin istered intravenously. Oral contrast was not requested which limits evaluation of bowel. All CT scans are performed using dose optimization technique as appropriate and may include automated exposure control or mA/KV adjustment according to patient size. FINDINGS: The liver, spleen, pancreas, adrenal and kidneys appear unremarkable. Normal appendix Diverticula stem from the colon. Mild to moderate stranding adjacent to the proximal sigmoid colon. S mall amount of ill-defined fluid within the pelvis. No abscess. No free air IMPRESSION: Mild to moderate diverticulitis
[2021-04-29] MEDS ORDERED: ONDANSETRON 4 MG/2 ML VIAL ONE (07:41)
[2021-04-29] MEDS ORDERED: MORPHINE 4 MG/ML SYR ONE (07:41)
[2021-04-29] MEDS ORDERED: KETOROLAC 30 MG/ML INJ ONE (08:06)
[2021-04-29] MEDS ORDERED: FENTANYL CITR 100 MCG/2 ML ONE (08:06)
--- NOTE | 2021-04-29 08:16 | EDPHYS ---
Physician Documentation [facility] Name: Phoenix Trivedi Age: 46 yrs Sex: Male : 1975 Arrival Date: 04/29/2021 Time: 05:46 Bed 4 Private MD: ED Physician Hayden Daley HPI: 04/29 06:47 This 46 yrs old Male presents to ER via Ambulatory with complaints of jmm Abdominal Pain. 06:47 The patient presents with abdominal pain. Onset: The symptoms/episode began/occurred jmm gradually, 1 day(s) ago. The symptoms do not radiate. Associated signs and symptoms: Pertinent positives: vomiting, Pertinent negatives: fever. The symptoms are described as achy, sharp. Modifying factors: The symptoms are alleviated by nothing, the symptoms are aggravated by nothing. The patient has experienced similar episodes in the past, today's symptoms are similar. This is a 46-year-old male with no chronic conditions presents emerged part with complaints of lower abdominal pain beginning earlier today. Patient states this is consistent to previous diverticulitis flares. Pain is localized to the lower abdomen. Historical: - Allergies: 06:08 No Known Allergies; bb - Home Meds: 06:08 None [Active]; bb - PMHx: 06:08 Diverticulitis; bb - PSHx: 06:08 None; bb - Immunization history:: Adult Immunizations up to date, Client reports receiving the 2nd dose of the Covid vaccine. - Social history:: Smoking status: Patient denies any tobacco usage or history of. Patient uses alcohol, occasionally. street drugs, marijuana. ROS: 06:47 Constitutional: Negative for fever, chills, and weight loss, Cardiovascular: Negative jmm for chest pain, palpitations, and edema, Respiratory: Negative for shortness of breath, cough, wheezing, and pleuritic chest pain. 06:47 Abdomen/GI: Positive for abdominal pain. 06:47 All other systems are negative. Exam: 06:47 Constitutional: This is a well developed, well nourished patient who is awake, alert, jmm and in no acute distress. Head/Face: atraumatic. Eyes: EOMI, no conjunctival erythema appreciated ENT: Moist Mucus Membranes Neck: Trachea midline, Supple Chest/axilla: Normal chest wall appearance and motion. Cardiovascular: Regular rate and rhythm. No edema appreciated Respiratory: Normal respirations, no respiratory distress appreciated 06:47 Back: Normal ROM Skin: General appearance color normal MS/ Extremity: Moves all extremities, no obvious deformities appreciated, no edema noted to the lower extremities Neuro: Awake and alert, normal gait Psych: Behavior is normal, Mood is normal, Patient is cooperative and pleasant 06:47 Abdomen/GI: Inspection: abdomen appears normal, Bowel sounds: normal, Palpation: soft, mild abdominal tenderness, in the suprapubic area. Vital Signs: 06:06 BP 113 / 81; Pulse 84; Resp 20 S; Temp 98.5(O); Pulse Ox 99% on R/A; Weight 70.31 kg bb (R); Height 5 ft. 9 in. (175.26 cm) (R); Pain 10/10; 07:15 BP 108 / 77; Pulse 70; Resp 15; Pulse Ox 100% ; jl7 08:14 BP 116 / 64; Pulse 69; Resp 15; Pulse Ox 100% ; jl7 06:06 Body Mass Index 22.89 (70.31 kg, 175.26 cm) MDM: 06:18 Patient medically screened. [facility] 06:46 Data reviewed: vital signs, nurses notes. [facility] 07:58 Counseling: I had a detailed discussion with the patient and/or guardian regarding: the [facility] historical points, exam findings, and any diagnostic results supporting the discharge/admit diagnosis, lab results, the need for outpatient follow up, to return to the emergency department if symptoms worsen or persist or if there are any questions or concerns that arise at home. ED course: Patient is alert and nontoxic in appearance in the ER. I discussed all labs and imaging studies with the patient. Patient will follow up with their primary care provider. Patient understood and agrees with plan of care.. 04/29 06:18 Order name: Basic Metabolic Panel 04/29 06:18 Order name: CBC with Diff 04/29 06:18 Order name: Hepatic Function; Complete Time: 06:49 04/29 06:18 Order name: Lipase; Complete Time: 06:49 04/29 06:19 Order name: Basic Metabolic Panel; Complete Time: 06:49 EDMS 04/29 06:19 Order name: CBC with Automated Diff; Complete Time: 06:40 EDMS 04/29 06:18 Order name: IV Saline Lock; Complete Time: 06:19 bb 04/29 06:30 Order name: CT Abd/Pelvis - IV Contrast Only; Complete Time: 07:29 jmm 04/29 06:18 Order name: Labs collected and sent; Complete Time: 06:18 bb Administered Medications: 07:22 Drug: Zofran (Ondansetron) 4 mg Route: IVP; Site: right forearm; jl7 08:00 Follow up: Response: No adverse reaction 7 07:24 Drug: morphine 4 mg Route: IVP; Site: right forearm; jl7 07:35 Follow up: Response: No adverse reaction; Pain is unchanged, physician notified jl7 07:59 Drug: Flagyl (metroNIDAZOLE) 500 mg Route: PO; jl7 08:12 Follow up: Response: No adverse reaction 7 08:00 Drug: Ketorolac 30 mg Route: IVP; Site: right forearm; jl7 08:12 Follow up: Response: No adverse reaction; Pain is unchanged, physician notified jl7 08:00 Drug: LevaQUIN (levofloxacin) 750 mg Route: PO; jl7 08:12 Follow up: Response: No adverse reaction 7 08:11 Not Given (Other Intervention Used): fentaNYL (PF) 50 mcg IVP once; RASS on ADMIN: jl7 Combtv4, Very Agttd3, Agttd2, Rstlss1, AlertClm0, Drwsy-1, Lt Sdtn-2, Mod Sdtn-3, Dp Sdtn-4, UnArsble-5 Disposition: 04/30 05:56 Co-signature as Attending Physician, Hayden Daley MD. [email or web address] Disposition Summary: 04/29/21 08:16 Discharge Ordered Location: Home [facility] Condition: Stable [facility] Diagnosis - Acute Diverticulitis [facility] Followup: [facility] - With: Kvng Navarrete MD - When: 2 - 3 days - Reason: Recheck today's complaints, Continuance of care, Re-evaluation by your physician Discharge Instructions: - Discharge Summary Sheet [facility] - Diverticulitis [facility] Forms: - Medication Reconciliation Form [facility] - Thank You Letter [facility] - Antibiotic Education [facility] - Prescription Opioid Use [facility] Prescriptions: - levofloxacin 750 mg Oral tablet - take 1 tablet by ORAL route once daily for 10 days; 10 tablet; Refills: 0, [facility] Product Selection Permitted - Flagyl 500 mg Oral Tablet - take 1 tablet by ORAL route every 6 hours for 10 days; 40 tablet; Refills: 0, [facility] Product Selection Permitted - dicyclomine 20 mg Oral Tablet - take 1 tablet by ORAL route 3 times per day; 20 tablet; Refills: 0, Product [facility] Selection Permitted Signatures: Dispatcher [employer] Raffi Ferguson PA PA jmm Ballard, Brenda, RN RN bb Celena Tillman RN RN jl7 Hayden Daley MD MD [email or web address]
--- NOTE | 2021-04-29 08:16 | ER ---
Nurse's Notes [facility] Name: Phoenix Trivedi Age: 46 yrs Sex: Male : 1975 Arrival Date: 04/29/2021 Time: 05:46 Bed 4 Private MD: Diagnosis: Acute Diverticulitis Presentation: 04/29 06:06 Chief complaint: Patient states: he is having severe abdominal pain since yesterday no bb vomiting or diarrhea, has hx of diverticulosis with same symptoms. Coronavirus screen: At this time, the client does not indicate any symptoms associated with coronavirus-19. Ebola Screen: No symptoms or risks identified at this time. Initial Sepsis Screen: Does the patient meet any 2 criteria? No. Patient's initial sepsis screen is negative. Does the patient have a suspected source of infection? No. Patient's initial sepsis screen is negative. Risk Assessment: Do you want to hurt yourself or someone else? Patient reports no desire to harm self or others. Onset of symptoms was April 28, 2021. 06:06 Method Of Arrival: Ambulatory bb 06:06 Acuity: SIVAKUMAR 3 bb Historical: - Allergies: 06:08 No Known Allergies; bb - Home Meds: 06:08 None [Active]; bb - PMHx: 06:08 Diverticulitis; bb - PSHx: 06:08 None; bb - Immunization history:: Adult Immunizations up to date, Client reports receiving the 2nd dose of the Covid vaccine. - Social history:: Smoking status: Patient denies any tobacco usage or history of. Patient uses alcohol, occasionally. street drugs, marijuana. Screenin:15 Abuse screen: Denies threats or abuse. Nutritional screening: No deficits noted. jb4 Tuberculosis screening: No symptoms or risk factors identified. Fall Risk None identified. Assessment: 06:15 General: Appears in no apparent distress. uncomfortable, Behavior is calm, cooperative, jb4 appropriate for age. Pain: Complains of pain in abdomen Pain does not radiate. Pain currently is 8 out of 10 on a pain scale. Neuro: Level of Consciousness is awake, alert, obeys commands, Oriented to person, place, time, situation. Cardiovascular: Patient's skin is warm and dry. Respiratory: Airway is patent Respiratory effort is even, unlabored, Respiratory pattern is regular, symmetrical. GI: Abdomen is flat, non-distended, Abd is soft X 4 quads Abd is non tender in epigastric area, right upper quadrant and left upper quadrant Abdomen is tender to palpation in suprapubic area, right lower quadrant and left lower quadrant Reports lower abdominal pain, cramping. : No signs and/or symptoms were reported regarding the genitourinary system. EENT: No signs and/or symptoms were reported regarding the EENT system. Derm: Skin is intact, Skin is pink, warm \\T\\ dry. Musculoskeletal: Circulation, motion, and sensation intact. Range of motion: intact in all extremities. 07:00 Reassessment: Patient appears in no apparent distress at this time. No changes from jl7 previously documented assessment. Pain: Complains of pain in right lower quadrant and left lower quadrant Pain does not radiate. Pain currently is 8 out of 10 on a pain scale. Quality of pain is described as "Like someone is stepping on my stomach." Pain began 1 day ago. Is continuous, Noted to be grimacing, guarding, resistant to movement. GI: Abdomen is non-distended, Bowel sounds present X 4 quads. Abd is soft Abdomen is tender to palpation in right lower quadrant and left lower quadrant. 08:12 Reassessment: Patient appears in no apparent distress at this time. Patient states jl7 feeling better. Patient states symptoms have improved. Vital Signs: 06:06 BP 113 / 81; Pulse 84; Resp 20 S; Temp 98.5(O); Pulse Ox 99% on R/A; Weight 70.31 kg bb (R); Height 5 ft. 9 in. (175.26 cm) (R); Pain 10/10; 07:15 BP 108 / 77; Pulse 70; Resp 15; Pulse Ox 100% ; jl7 08:14 BP 116 / 64; Pulse 69; Resp 15; Pulse Ox 100% ; jl7 06:06 Body Mass Index 22.89 (70.31 kg, 175.26 cm) ED Course: 05:46 Patient arrived in ED. am2 06:08 Triage completed. bb 06:08 Arm band placed on Patient placed in an exam room, on a stretcher, on pulse oximetry. 06:11 Raffi Hatch PA is PHCP. juma 06:12 Hayden Daley MD is Attending Physician. jmm 06:15 Patient has correct armband on for positive identification. Bed in low position. Call jb4 light in reach. Side rails up X 1. Pulse ox on. NIBP on. 06:23 Initial lab(s) drawn, by me, sent to lab. Inserted saline lock: 18 gauge in right bb forearm, using aseptic technique. Blood collected. 07:03 CT Abd/Pelvis - IV Contrast Only In Process Unspecified. EDMS 07:11 Celena Tillman, AMITA is Primary Nurse. jl7 08:16 Kvng Navarrete MD is Referral Physician. [facility] 08:30 No provider procedures requiring assistance completed. IV discontinued, intact, jl7 bleeding controlled, No redness/swelling at site. Pressure dressing applied. Administered Medications: 07:22 Drug: Zofran (Ondansetron) 4 mg Route: IVP; Site: right forearm; jl7 08:00 Follow up: Response: No adverse reaction jl7 07:24 Drug: morphine 4 mg Route: IVP; Site: right forearm; jl7 07:35 Follow up: Response: No adverse reaction; Pain is unchanged, physician notified jl7 07:59 Drug: Flagyl (metroNIDAZOLE) 500 mg Route: PO; jl7 08:12 Follow up: Response: No adverse reaction jl7 08:00 Drug: Ketorolac 30 mg Route: IVP; Site: right forearm; jl7 08:12 Follow up: Response: No adverse reaction; Pain is unchanged, physician notified jl7 08:00 Drug: LevaQUIN (levofloxacin) 750 mg Route: PO; jl7 08:12 Follow up: Response: No adverse reaction jl7 08:11 Not Given (Other Intervention Used): fentaNYL (PF) 50 mcg IVP once; RASS on ADMIN: jl7 Combtv4, Very Agttd3, Agttd2, Rstlss1, AlertClm0, Drwsy-1, Lt Sdtn-2, Mod Sdtn-3, Dp Sdtn-4, UnArsble-5 Outcome: 08:16 Discharge ordered by . [facility] 08:30 Discharged to home ambulatory. jl7 08:30 Condition: stable 08:30 Discharge instructions given to patient, Instructed on discharge instructions, follow up and referral plans. medication usage, Demonstrated understanding of instructions, follow-up care, medications, Prescriptions given X 3. 08:30 Patient left the ED. jl7 Signatures: Dispatcher [employer] EDMS Raffi Hatch PA PA jmm Ballard, Brenda, RN RN Elpidio Muller RN RN jb4 Celena Tillman RN RN jl7 Elissa Burks am2
[2021-04-29] MEDS ORDERED: levoFLOXacin 750 MG TAB ONE (08:18)
[2021-04-29] MEDS ORDERED: metroNIDAZOLE 500 MG TABLET ONE (08:18)
[2021-04-29 08:39] VITALS: TEMP 98.5
[2021-04-29 08:41] VITALS: O2SAT 100
[2021-04-29 08:42] VITALS: BP 116/64
== END 2021-04-29 08:30 | disposition home or self-care (01) ==
LOC: ER 05:45
DX: K57.32 Diverticulitis of large intestine without perforation or abscess without bleeding (principal)
CPT/HCPCS: 85025; 80048; 36415; 80076; 83690; 74177; 96375; 96374; 99284; Q9967; J3010; J2405

== ENCOUNTER 2021-10-23 17:54 | Emergency (ER) | payer OTHER ==
--- OUTSIDE RECORDS SUMMARY | 2021-10-23 17:57 | XMS REPORT | Continuity of Care Document ---
:1975 Author Organization [facility] t Address [address] [place] [address] Dr. Krishna [address] [place] [address] Care Team Providers Name Role Phone PCP, DOES NOT HAVE A Primary Care Physician Unavailable Singer BAIN Attending Clinician Doctor Unassigned, Name Attending Clinician Unavailable Pcp, Does Not Have A Attending Clinician Lab, Fam Pob I Attending Clinician Unavailable Anene NEON PUMPER Attending Clinician ANENE Attending Clinician Unavailable Pob1, Care Clinic Attending Clinician Unavailable Enid Funk Attending Clinician Enid AVALOS Attending Clinician Unavailable YENY R Attending Clinician Unavailable YENY, R Admitting Clinician Unavailable Payers Payer Name Policy Type Policy Number Effective Date Expiration Date S mary [facility] [id number] 2020 00:00:00 MEDICAID PENDING PENDING 2019 2019 00:00:00 00:00:00 Problems Condition Condition Condition Status Onset Resolution Last Treating Co mments Source Name Details Category Date Date Treatment Clinician Date No known No known Disease Unive rs active active ity of problems problems [facility] Allergies, Adverse Reactions, Alerts Allergy Allergy Status Severity Reaction(s) Onset Inactive Treating Comm ents Source Name Type Date Date Clinician NO KNOWN Drug Active Univers ALLERGIE Class ity of S [facility] Social History Social Habit Start Date Stop Date Quantity Comments Source Exposure to Not sure [facility] SARS-CoV-2 (event) Medica l Branch Tobacco use and 2020-04-08 2020-04-08 Never used [facility] exposure 00:00:00 00:00:00 Medical Branch Sex Ass[birth year] At [birth year] [facility] 00:00:00 00:00:00 Medical Branch Smoking Status Start Date Stop Date Source Never smoker [facility] [place] [facility] Medications Ordered Filled Start Stop Current Ordering Indication Dosage Frequency Signature Comments Components Source Medication Medication Date Date Medication? Clinician (SIG) Name Name HYDROcodone 2020- No 1{tbl} 1 tablet, Univers -acetaminop 5-27 -27 Oral, ity of [place] (NORCO) 16:15: 15:20 [place] 10[place]325 [place] :00 dose, Nisha Medic al tablet 1 03/02/21 at [facility] h tablet 1115, Routine iopamidol 2020- No [id number] 120mL 120 mL, Univers (ISOVUE -02 03-27 Intravenou ity o f 370-500 mL) 14:55: 14:55 s, ONCE, 1 [place] injection 00 :00 dose, Nisha Medic al 120 mL 03/02/21 at Branch 1015, Routine ciprofloxac Yes [id number] 500mg Take 1 Univers in HCl 500 5-27 tablet by ity of mg tablet 00:00: mouth 2 [place] 00 (two) Medical times Branch daily. metroNIDAZO Yes [id number] 500mg Take 1 Univers LE 500 mg 5-27 tablet by ity o f tablet 00:00: mouth 2 [place] 00 (two) Medical times Branch daily. ondansetron Yes [id number] 4mg Take 1 Univers 4 mg 5-27 tablet by ity of disintegrat 00:00: mouth [place] ing tablet 00 every 8 Medica l (eight) Branch hours as needed for Nausea and Vomiting (N/V). acetaminoph Yes [id number] 1{tbl} Take 1 Un andreas en-codeine 5-27 tablet by ity of 300-30 mg 00:00: mouth [place] tablet 00 every 4 Medical (four) Branch hours as needed for Pain (scale 7-10). Indication s: acute pain amoxicillin 2020- No [id number] 1{tbl} Take 1 Univers -clavulanat 7-06 07-17 tablet by it y of e 00:00: 04:59 mouth 2 [place] (AUGMENTIN) 00 :00 (two) Medical 875-125 mg times Branch per tablet daily for 10 days. amoxicillin 2020- No [id number] 1{tbl} Take 1 Univers -clavulanat 7-06 07-17 tablet by it y of e 00:00: 04:59 mouth 2 [place] (AUGMENTIN) 00 :00 (two) Medical 875-125 mg times Branch per tablet daily for 10 days. ondansetron 2018-10 Yes [id number] 4mg Take 1 Univers (ZOFRAN 2-06 tablet by ity of ODT) 4 mg 00:00: mouth [place] disintegrat 00 every 8 Medic al ing tablet (eight) Branch hours as needed for Nausea and Vomiting (N/V) for up to 15 doses. traMADol 50 2018-10 Yes [id number] 50mg Take 1 Univers mg tablet 2-06 tablet by ity o f 00:00: mouth [place] 00 every 6 Medical (six) Branch hours as needed for Pain (scale 7-10) for up to 12 doses. ondansetron 2018-10 Yes [id number] 4mg Take 1 Univers (ZOFRAN 2-06 tablet by ity of ODT) 4 mg 00:00: mouth [place] disintegrat 00 every 8 Medic al ing tablet (eight) Branch hours as needed for Nausea and Vomiting (N/V) for up to 15 doses. traMADol 50 2018-10 Yes [id number] 50mg Take 1 Univers mg tablet 2-06 tablet by ity o f 00:00: mouth [place] 00 every 6 Medical (six) Branch hours as needed for Pain (scale 7-10) for up to 12 doses. ondansetron 2018-10 Yes [id number] 4mg Take 1 Univers (ZOFRAN 2-06 tablet by ity of ODT) 4 mg 00:00: mouth [place] disintegrat 00 every 8 Medic al ing tablet (eight) Branch hours as needed for Nausea and Vomiting (N/V) for up to 15 doses. traMADol 50 2018-10 Yes [id number] 50mg Take 1 Univers mg tablet 2-06 tablet by ity o f 00:00: mouth [place] 00 every 6 Medical (six) Branch hours as needed for Pain (scale 7-10) for up to 12 doses. ondansetron 2018-10 Yes [id number] 4mg Take 1 Univers (ZOFRAN 2-06 tablet by ity of ODT) 4 mg 00:00: mouth [place] disintegrat 00 every 8 Medic al ing tablet (eight) Branch hours as needed for Nausea and Vomiting (N/V) for up to 15 doses. traMADol 50 2018-10 Yes [id number] 50mg Take 1 Univers mg tablet 2-06 tablet by ity o f 00:00: mouth [place] 00 every 6 Medical (six) Branch hours as needed for Pain (scale 7-10) for up to 12 doses. ondansetron 2018-10 Yes [id number] 4mg Take 1 Univers (ZOFRAN 2-06 tablet by ity of ODT) 4 mg 00:00: mouth [place] disintegrat 00 every 8 Medic al ing tablet (eight) Branch hours as needed for Nausea and Vomiting (N/V) for up to 15 doses. traMADol 50 2018-10 Yes [id number] 50mg Take 1 Univers mg tablet 2-06 tablet by ity o f 00:00: mouth [place] 00 every 6 Medical (six) Branch hours as needed for Pain (scale 7-10) for up to 12 doses. ondansetron 2018-10 Yes [id number] 4mg Take 1 Univers (ZOFRAN 2-06 tablet by ity of ODT) 4 mg 00:00: mouth [place] disintegrat 00 every 8 Medic al ing tablet (eight) Branch hours as needed for Nausea and Vomiting (N/V) for up to 15 doses. traMADol 50 2018-10 Yes [id number] 50mg Take 1 Univers mg tablet 2-06 tablet by ity o f 00:00: mouth [place] 00 every 6 Medical (six) Branch hours as needed for Pain (scale 7-10) for up to 12 doses. ondansetron 2018-10 Yes [id number] 4mg Take 1 Univers (ZOFRAN 2-06 tablet by ity of ODT) 4 mg 00:00: mouth [place] disintegrat 00 every 8 Medic al ing tablet (eight) Branch hours as needed for Nausea and Vomiting (N/V) for up to 15 doses. traMADol 50 2018-10 Yes [id number] 50mg Take 1 Univers mg tablet 2-06 tablet by ity o f 00:00: mouth [place] 00 every 6 Medical (six) Branch hours as needed for Pain (scale 7-10) for up to 12 doses. ondansetron 2018-10 Yes [id number] 4mg Take 1 Univers (ZOFRAN 2-06 tablet by ity of ODT) 4 mg 00:00: mouth [place] disintegrat 00 every 8 Medic al ing tablet (eight) Branch hours as needed for Nausea and Vomiting (N/V) for up to 15 doses. traMADol 50 2018-10 Yes [id number] 50mg Take 1 Univers mg tablet 2-06 tablet by ity o f 00:00: mouth [place] 00 every 6 Medical (six) Branch hours as needed for Pain (scale 7-10) for up to 12 doses. ondansetron 2018-10 Yes [id number] 4mg Take 1 Univers (ZOFRAN 2-06 tablet by ity of ODT) 4 mg 00:00: mouth [place] disintegrat 00 every 8 Medic al ing tablet (eight) Branch hours as needed for Nausea and Vomiting (N/V) for up to 15 doses. traMADol 50 2018-10 Yes [id number] 50mg Take 1 Univers mg tablet 2-06 tablet by ity o f 00:00: mouth [place] 00 every 6 Medical (six) Branch hours as needed for Pain (scale 7-10) for up to 12 doses. traMADol 50 2018-10 Yes [id number] 50mg Take 1 Univers mg tablet 2-06 tablet by ity o f 00:00: mouth [place] 00 every 6 Medical (six) Branch hours as needed for Pain (scale 7-10) for up to 12 doses. ondansetron 2018-10- No [id number] 4mg Take 1 Univers (ZOFRAN 2-06 05-27 tablet by ity of ODT) 4 mg 00:00: 00:00 mouth [place] disintegrat 00 :00 every 8 Medic al ing tablet (eight) Branch hours as needed for Nausea and Vomiting (N/V) for up to 15 doses. Vital Signs Vital Name Observation Time Observation Value Comments Source Systolic blood 2021-03-02 14:20:00 124 mm[Hg] Univer sity of [facility] Diastolic blood 2021-03-02 14:20:00 80 [facility]Hg[facility] 2021-03-02 14:20:00 71 /min [facility] [place] [facility] Body temperature 2021-03-02 14:20:00 36.56 Roxana Univ ersity [facility] [place] [facility] Respiratory rate 2021-03-02 14:20:00 18 /min Univ [facility] [place] [facility] Body weight 2021-03-02 14:20:00 68.04 kg [facility]i [facility] [place] [facility] BMI 2021-03-02 14:20:00 22.81 kg/m2 [facility] [place] [facility] Oxygen saturation in 2021-03-02 14:20:00 96 /min University of Arterial blood by [facility] bill Pulse oximetry Branch Systolic blood 2021-03-02 14:20:00 124 mm[Hg] Univer sity of pressure [place] [facility] Diastolic blood 2021-03-02 14:20:00 80 mm[Hg] Unive rsity of pressure [place] [facility] Heart rate 2021-03-02 14:20:00 71 /min [facility]i [facility] [place] [facility] Body temperature 2021-03-02 14:20:00 36.56 Roxana Univ [facility] [place] [facility] Respiratory rate 2021-03-02 14:20:00 18 /min Univ [facility] [place] [facility] Body weight 2021-03-02 14:20:00 68.04 kg [facility] [place] [facility] BMI 2021-03-02 14:20:00 22.81 kg/m2 [facility] [place] [facility] Oxygen saturation in 2021-03-02 14:20:00 96 /min University of Arterial blood by [facility] bill Pulse oximetry Branch Systolic blood 2020-04-08 13:16:00 106 mm[Hg] Univer sity of pressure [place] [facility] Diastolic blood 2020-04-08 13:16:00 69 mm[Hg] Unive rsity of pressure [place] [facility] Heart rate 2020-04-08 13:16:00 61 /min [facility] [place] [facility] Body temperature 2020-04-08 13:16:00 36.67 Roxana Univ [facility] [place] [facility] Respiratory rate 2020-04-08 13:16:00 16 /min Univ [facility] [place] [facility] Body height 2020-04-08 13:16:00 172.7 cm [facility] [place] [facility] Body weight 2020-04-08 13:16:00 68.04 kg Universi ty [facility] BMI 2020-04-08 13:16:00 22.81 kg/m2 Universi ty [facility] Oxygen saturation in 2020-04-08 13:16:00 100 /min University of Arterial blood by [facility] Pulse oximetry Branch Systolic blood 2020-04-08 13:16:00 106 mm[facility]Hg] [facility] Diastolic blood 2020-04-08 13:16:00 69 mm[Hg] Unive rsity of pressure [facility] Heart rate 2020-04-08 13:16:00 61 /min Universi [facility] Body temperature 2020-04-08 13:16:00 36.67 Roxana [facility] 2020-04-08 13:16:00 16 /min [facility] Body height 2020-04-08 13:16:00 172.7 cm Universi [facility] Body weight 2020-04-08 13:16:00 68.04 kg Universi [facility] BMI 2020-04-08 13:16:00 22.81 kg/m2 Universi [facility] Oxygen saturation in 2020-04-08 13:16:00 100 /min University of Arterial blood by [facility] Pulse oximetry Branch Procedures Procedure Date / Time Performed Performing Clinician Sour e CT ABDOMEN PELVIS W 2021-03-02 15:00:56 Juan J Haney [facility] LIPASE 2021-03-02 14:28:00 Singer [facility] COMP. METABOLIC PANEL 2021-03-02 14:28:00 [facility] ([id number] CBC WITH DIFF 2021-03-02 14:28:00 Haney, [facility] URINALYSIS 2021-03-02 14:28:00 Dawson [facility] NOTICE OF PRIVACY 2021-03-02 14:11:42 Doctor Unassigned, No Univ [facility] Name Medical Branch CT ABDOMEN PELVIS WO 2020-04-08 14:59:58 Amanda Rosado [facility] POCT GRP A STREP 2020-04-08 13:32:00 Nora Avalos [facility] (MOLECULAR) [facility] COVID-19 (PCR 2020-04-08 13:13:00 Ashlee Amanda [place] [facility]en white [place] MOLECULAR TESTING) [facility] h Encounters Start End Encounter Admission Attending Care Care Encounter Source Date/Time Date/Time Type Type Clinicians Facility Department ID 2021-08-06 Emergency [facility] [id number] Univers 21:40:21 ity of [facility] 2021-03-02 2021-03-02 [facility] [id number] 09:14:00 10:27:00 Juan J Nagel [id number] [place] [id number] [facility] [id number] 2021-03-02 2021-03-02 [facility] [id number] [facility] [place] 09:14:00 10:27:00 Juan J Nagel [id number] i ty [facility] 4.2.7.2.686 [facility] [id number] [facility] 084 [place] 2021-03-02 2021-03-02 Orders Doctor REHMAN [id number] 00:00:00 00:00:00 Only Unassigned, JENA [id number] [place] [facility] 4.2.7.2.686 [id number] 2021-03-02 2021-03-02 Orders Doctor REHMAN [id number] Univers 00:00:00 00:00:00 Only Unassigned, JENA [id number] ity [place] [facility] 4.2.7.2.686 Reynaldo [id number] [facility] 009 Branch 2020-05-03 2020-05-03 Outpatient R [facility] [id number] Univers 09:00:00 09:00:00 [id number] ity of [facility] 2020-05-03 2020-05-03 Outpatient R [facility] [id number] Univers 09:00:00 09:00:00 ity [facility] 2020-05-03 2020-05-03 Telephone [id number] 00:00:00 00:00:00 Patient JENA [id number] Does Not HOSPITAL 4.2.7.2.686 Have A [id number] [facility] 2020-05-03 2020-05-03 Telephone PcpORI [id number] Univers 00:00:00 00:00:00 Patient JENA [id number] it y of Does [place] HOSP[place].2.[place] Have A [id number] [address] 2020-05-02 2020-05-02 Laboratory Lab, [facility] [id number] 16:42:03 17:02:03 Only Fam Pob I Health [id number] [place] 4.2.7.2.686 Professio [id number] [place] [address] Office Building [facility] 2020-05-02 2020-05-02 Laboratory Lab, [facility] Fam Pob I [facility] [id number] Univers 16:42:03 17:02:03 Only Anesneha, Amanda Health [id number] ity of [place] 4.2.7.2.686 Reynaldo as Professio [id number] Sd dical [address] Office Building [facility] 2020-05-02 2020-05-02 Outpatient R [facility] [id number] Univers 16:40:00 16:40:00 [id number] ity [facility] 2020-05-02 2020-05-02 Outpatient R [facility] [id number] Univers 16:40:00 16:40:00 ity [facility] 2020-05-02 2020-05-02 Outpatient R ANESNEHA, [facility] [id number] Univers 16:40:00 16:40:00 AMANDA ity [facility] 2020-04-13 2020-04-13 Telephone Pob1, Acute [facility] [id number] 00:00:00 00:00:00 Care Clinic Health [id number] [place] 4.2.7.2.686 Professio [id number] [place] [address] Office Building [facility] 2020-04-13 2020-04-13 Telephone Pob1, Acute [facility] [id number] Univers 00:00:00 00:00:00 [facility] [id number] ity of [place] 4.2.7.2.686 Reynaldo as Professio [id number] [address] Office Building [facility] 2020-04-11 2020-04-11 Outpatient [facility] [id number] Univers 13:20:00 13:20:00 AMANDA ity of [facility] 2020-04-08 2020-04-11 Urgent Pob1, Acute [facility] [id number] 07:56:12 08:18:46 [facility] Health [id number] [place] 4.2.7.2.686 Professio [phone] [place] [address] Office Building [facility] 2020-04-08 2020-04-11 Urgent Pob1, Acute Care [facility] [id number]. [id number] Univers 07:56:12 08:18:46 Care Nora Avalos A Health 350.1.13.10 ity of [place] 4.2.7.2.686 Reynaldo as Professio [id number] [address] Office Building One 2020-04-11 2020-04-11 [facility] [id number] Univers 00:00:00 00:00:00 AMANDA ity of [facility] 2020-04-08 2020-04-08 [facility] [id number] Univers 09:37:00 23:59:00 Encounter Amanda Nagel 350.1.13.10 ity [facility] 4.2.7.2.686 [place] [facility] [id number] [address] 2020-04-08 2020-04-08 [facility]patient [facility] [id number] Univers 11:30:00 11:30:00 AMANDA ity [facility] 2020-04-08 2020-04-08 [facility] [id number] Univers 09:22:00 09:36:00 Encounter Amanda Nagel [id number] ity of [place] 4.2.7.2.686 [facility] [id number] [place] [address] Branch 2020-04-08 2020-04-08 Outpatient R BAILEY [facility] [id number] Univers 08:00:00 08:00:00 NORA sanford [facility] 2019-09-11 2019-09-11 Emergency X YENY [facility] ERT [id number] Univers 12:54:59 15:57:00 CUCA vero [facility] Results Test Test Test Results Result Source Description Time Comments Comments CT ABDOMEN 2021-02 1. ?Borderline findings of University PELVIS W -27 minimal acute, uncomplicated, of [place] CONTRAST 15:11:5 sigmoiddiverticulitis. 2. Medical 0 ?Bladder wall thickening may Branch be reactive from colonic inflammation, ormay represent cystitis. Correlation with urinalysis is recommended. Preliminary Report Dictated by Resident: Sylvain Ramsey ?MD. Jaky, have reviewed this study and agree with theabove report.EXAM: CT ABDOMEN PELVIS W CONTRAST HISTORY: 45 years-old Male: Abdominal pain, acute, nonlocalized for 2 days,history of diverticulitis TECHNIQUE: Contiguous axial imaging from the level of the lung basesthrough the proximal thighs was performed following the uncomplicatedadministration of intravenous contrast. Coronal and sagittalreconstructions were obtained. COMPARISON: CT abdomen pelvis dated 04/08/2020 FINDINGS: LOWER THORAX: The lung bases are clear. LIVER: The liver is normal in size and contour. No focal hepatic lesion isseen. GALLBLADDER AND BILIARY TREE: The gallbladder appears unremarkable. Noradiopaque gallstones are seen. No intra or extrahepatic biliary ductaldilation is visualized. SPLEEN: The spleen appears unremarkable. PANCREAS: No ductal dilation or masses are visualized. ADRENAL GLANDS: No adrenal masses are seen. KIDNEYS: No hydronephrosis, stones, or solid masses are visualized. PELVIS/BLADDER: The bladder wall is mildly prominent out of proportion tothe degree of distension. GI TRACT: Sigmoid diverticuli are visualized with circumferential muralthickening and minimal adjacent fat stranding. No fluid collection orperforation is seen. Duodenal and jejunal mural wall thickening is noted.The appendix remains mildly dilated but is air-filled and unremarkable(4:56). PERITONEUM AND RETROPERITONEUM: No intra-abdominal free air or fluidcollection is visualized. A fat-containing umbilical hernia measuresapproximately 0.5 cm at the level of the fascial defect. LYMPH NODES: Prominent lymph nodes in the pelvis are likely reactive. VESSELS: The vessels appear unremarkable. BONES AND SOFT TISSUES: 2.1 cm mixed sclerotic and lytic lesion at the leftilium is grossly unchanged in size and may continue to represent a boneisland or focus of fibrous dysplasia. Sclerotic foci at the rightacetabulum and left femoral head and shaft likely also represent boneislands. [facility], Radiant Results Inft User - 03/02/2021 10:12 AM CDT EXAM: CT ABDOMEN PELVIS W CONTRASTHISTORY: 45 years-old Male: Abdominal pain, acute, nonlocalized for 2 days,history of diverticulitisTECHNIQUE: Contiguous axial imaging from the level of the lung basesthrough the proximal thighs was performed following the uncomplicatedadministration of intravenous contrast. Coronal and sagittalreconstructions were obtained. COMPARISON: CT abdomen pelvis dated 04/08/2020FINDINGS:LOWER THORAX: The lung bases are clear.LIVER: The liver is normal in size and contour. No focal hepatic lesion isseen.GALLBLADDER AND BILIARY TREE: The gallbladder appears unremarkable. Noradiopaque gallstones are seen. No intra or extrahepatic biliary ductaldilation is visualized. SPLEEN: The spleen appears unremarkable.PANCREAS: No ductal dilation or masses are visualized.ADRENAL GLANDS: No adrenal masses are seen. KIDNEYS: No hydronephrosis, stones, or solid masses are visualized.PELVIS/BLADDER: The bladder wall is mildly prominent out of proportion tothe degree of distension. GI TRACT: Sigmoid diverticuli are visualized with circumferential muralthickening and minimal adjacent fat stranding. No fluid collection orperforation is seen. Duodenal and jejunal mural wall thickening is noted.The appendix remains mildly dilated but is air-filled and unremarkable(4:56).PERITONEUM AND RETROPERITONEUM: No intra-abdominal free air or fluidcollection is visualized. A fat-containing umbilical hernia measuresapproximately 0.5 cm at the level of the fascial defect. LYMPH NODES: Prominent lymph nodes in the pelvis are likely reactive.VESSELS: The vessels appear unremarkable.BONES AND SOFT TISSUES: 2.1 cm mixed sclerotic and lytic lesion at the leftilium is grossly unchanged in size and may continue to represent a boneisland or focus of fibrous dysplasia. Sclerotic foci at the rightacetabulum and left femoral head and shaft likely also represent boneislands. IMPRESSION1. Borderline findings of minimal acute, uncomplicated, sigmoiddiverticulitis.2. Bladder wall thickening may be reactive from colonic inflammation, ormay represent cystitis. Correlation with urinalysis is recommended.Preliminary Report Dictated by Resident: Sylvain Williamson MD., have reviewed this study and agree with theove report. Urinalysis 2021-03-02 14:55:55 Test Item Value Reference Range Interpretation Comme nts APPEARANCE (test code = Clear Clear 6974117011) COLOR (test code = 5521651327) Yellow Yellow PH (test code = 8084096691) 4.8-8.0 SP GRAVITY (test code = 1.003-1.030 0062950542) GLU U QUAL (test code = Normal Normal 1962005169) BLOOD (test code = 8896718441) Negative Negative KETONES (test code = 7360333168) Negative Negative PROTEIN (test code = 2887-8) Negative Negative UROBILIN (test code = 2.0 mg/dL Normal A 0835932977) BILIRUBIN (test code = Negative Negative 3432708455) NITRITE (test code = 4958465476) Negative Negative LEUK SHAYY (test code = Negative Negative 3035711434) RBC/HPF (test code = 1446703555) See_Comment [Automated message] The system which ge nerated this result transmit huber reference range: 0 - 3 HP F. The reference range was not used to interpret th is result as normal/abnormal . WBC/HPF (test code = 3876532790) <1 See_Comment [Automated message] The system which ge nerated this result transmit huber reference range: 0 - 5 HP F. The reference range was not used to interpret th is result as normal/abnormal . BACTERIA (test code = Negative Negative 1012792362) MUCOUS (test code = 3445314700) Slight Negative LPF A Lab Interpretation (test code = Abnormal 19161-8) [place] [facility] [id number] 14:46:20 Test Item Value Reference Range Interpretation Comments NA (test code = 139 mmol/L 135-145 6755120916) K (test code = 4.0 mmol/L 3.5-5.0 6042893732) CL (test code = 104 mmol/L 98-108 5290907967) CO2 TOTAL (test code 28 mmol/L 23-31 = 8023905626) AGAP (test code = 2-16 0310910473) BUN (test code = 15 mg/dL 7-23 8472543974) GLUCOSE (test code = 92 mg/dL 70-110 3559093153) CREATININE (test code 1.00 mg/dL 0.60-1.25 = 4238907209) TOTAL BILI (test code 0.7 mg/dL 0.1-1.1 = 5117029089) CALCIUM (test code = 9.4 mg/dL 8.6-10.6 2591715655) T PROTEIN (test code 7.3 g/dL 6.3-8.2 = 3245901947) ALBUMIN (test code = 4.3 g/dL 3.5-5.0 2341999312) ALK PHOS (test code = 87 U/L 34-122 0380925888) ALTv (test code = 15 U/L 5-50 1742-6) AST(SGOT) (test code 25 U/L 13-40 = 2234382016) eGFR (test code = mL/min/1.73m2 7999489352) KACI (test code = KACI) Association of Glomerular Filtration Rate (GFR) and Staging of Kidney Disease* + + +- +| GFR (mL/min/1.73 m2) ?| With Kidney Damage ?| ?Without Kidney Damage+ ------+ ----+ ------+| ?>90 ?| ?Stage one ?| ? Normal ?+ -+ + -+| ?60-89 ?| ?Stage two ?| ? Decreased GFR ? + + +- +| ?30-59 ?| ?Stage three ?| ? Stage three ? + + +- +| ?15-29 ?| ?Stage four ? | ? Stage four ?+ -+ + -+| ?<15 (or dialysis) ? ?| ?Stage five ? | ? Stage five ?+ -+ + -+ *Each stage assumes the associated GFR level has been in effect for at least three months. ?Stages 1 to 5, with or without kidney disease, indicate chronic kidney disease. Notes: Determination of stages one and two (with eGFR >59mL/min/1.73 m2) requires estimation of kidney damage for at least three months as defined by structural or functional abnormalities of the kidney, manifested by either:Pathological abnormalities or Markers of kidney damage (including abnormalities in the composition of the blood or urine or abnormalities in imaging tests). [facility], [id number] 14:46:05 Test Item Value Reference Range Interpretation Comments LIPASE (test code = 5041625949) 77 U/L 0-220 Lab Interpretation (test code = Normal 98849-2) [facility] CenterCBC with [id number] 14:40:01 Test Item Value Reference Range Interpretation Comments WBC (test code = See_Comment [Automated 8090-2) message] The sy stem which generated this result transmitted reference range : 4.20 - 10.70 10*3/?L. The reference range was not used to interpret this result as normal/abnormal . RBC (test code = See_Comment [Automated 979-8) message] The sy stem which generated this result transmitted reference range : 4.26 - 5.52 10*6/?L. The reference range was not used to interpret this result as normal/abnormal . HGB (test code = 14.6 g/dL 12.2-16.4 718-7) HCT (test code = 42.3 % 38.4-49.3 4544-3) MCV (test code = 89.1 fL 81.7-95.6 787-2) MCH (test code = 30.7 pg 26.1-32.7 785-6) MCHC (test code = 34.5 g/dL 31.2-35.0 786-4) RDW-SD (test code = 41.2 fL 38.5-51.6 05721-0) RDW-CV (test code = 12.6 % 12.1-15.4 788-0) PLT (test code = See_Comment [Automated 837-3) message] The sy stem which generated this result transmitted reference range : 150 - 328 10*3/ ?L. The reference r meenu was not used to interpret this result as normal/abnormal . MPV (test code = 10.0 fL 9.8-13.0 52546-2) NRBC/100 WBC (test See_Comment [Automat ed code = 5456268320) message] The system which generated this result transmitted reference range : 0.0 - 10.0 /100 WBCs. The refer ence range was not u sed to interpret th is result as normal/abnormal . NRBC x10^3 (test code <0.01 See_Comment [Auto mated = 4895526083) message] The s ystem which generated this result transmitted reference range : 10*3/?L. The reference range was not used to interpret this result as normal/abnormal . GRAN MAT (NEUT) % 76.1 % (test code = 770-8) IMM GRAN % (test code 0.40 % = 3946906354) LYMPH % (test code = 13.9 % 736-9) MONO % (test code = 8.3 % 5905-5) EOS % (test code = 0.9 % 713-8) BASO % (test code = 0.4 % 706-2) GRAN MAT x10^3(ANC) 8.03 10*3/uL 1.99-6.95 H (test code = 7705289459) IMM GRAN x10^3 (test 0.04 10*3/uL 0.00-0.06 code = 7345690500) LYMPH x10^3 (test code 1.47 10*3/uL 1.09-3.23 = 731-0) MONO x10^3 (test code 0.87 10*3/uL 0.36-1.02 = 742-7) EOS x10^3 (test code = 0.09 10*3/uL 0.06-0.53 711-2) BASO x10^3 (test code 0.04 10*3/uL 0.01-0.09 = 704-7) Lab Interpretation Abnormal (test code = 04887-3) [facility] CenterCOVID-[facility] ([facility] TESTING)2020-04-10 01:22:00 Test Item Value Reference Range Interpretation Comments SARS-CoV-2 PCR (test Not Detected Not Detected code = 02470-6) KACI (test code = KACI) [place] [facility] SARS-CoV-2 Assay is a real-time RT-PCR test intended for the qualitative detection of RNA from SARS-CoV-2 from nasopharyngeal (FRICTION WELDING MACHINE OPERATOR) specimens. It is used under Emergency Use Authorization (EUA) by FDA. A positive result is indicative of the presence of SARS-CoV-2 RNA. ?Clinical correlation with patient history and other diagnostic information is necessary to determine patient infection status. A negative (Not Detected) result does not preclude SARS-CoV-2 infection. Clinical correlation with patient history and other diagnostic information should be used in patient management decisions. Invalid: Please collect a new specimen for repeat patient testing if clinically indicated. Lab Interpretation Normal (test code = 51100-8) [facility] CenterCT ABDOMEN PELVIS WO [id number] 00:04:40 Findings of acute diverticulitis at the sigmoid colon. No extraluminal gasor fluid collection. Preliminary Report Dictated by Resident: Melvin Braga I, Kallie Cisneros MD., have reviewed this study and agree with the abovereport.EXAM: CT ABDOMEN AND PELVIS WITHOUT CONTRAST HISTORY: Lower abdomina l pain. Diverticulitis suspected. COMPARISON: CT Abdomen Pelvis with utmsaelaqvp35/6/2019. DOSE: Total exam DLP [243] mGy-cm TECHNIQUE AND FINDINGS: Contiguous axial imaging from the level of the lungbases through the pubic symphysis was performed without the intravenousadministration of contrast. Jim nal and sagittal reconstructions wereobtained. ?Auto mA and/or iterative reconstruction were used toreduceradiation dose. FINDINGS: LOWER THORAX: The lungs bases are clear. No cardiomegaly. LIVER: No focal hepatic lesions. ?Normal liver contour. GALLBLADDER AND BILIARY TREE: No biliary ductal dilation. ?No gallbladderwall thickening. SPLEEN: No splenomegaly. PANCREAS: No ductal dilation or masses. ADRENAL GLANDS: No adrenal nodules. KIDNEYS: No hydronephrosis, stones, or masses. PERITONEUM AND RETROPERITONEUM: No free air or fluid. LYMPH NODES: No lymphadenopathy. GI TRACT: No dilated bowel. Sigmoid colon diverticulosis with segment circumferentialmural thickening with pericolonic inflammatory stranding, consistent withacute diverticulitis. The appendix is air-filled and mildly distended and without significantperiappendiceal inflammatory stranding. PELVIS/BLADDER: The urinary bladder is mildlydistended and the ahmadi arenot significantly thickened with regard to the observed degree ofdistention. VESSELS: Unremarkable. BONES AND SOFT TISSUES: No suspicious lytic or sclerotic bony lesions. A 2.2 cm mixed sclerotic and lytic lesion within the right ilium, notsignificantly changed from comparison. This lesion demonstrates a narrowzone of transition. This lesion may represent a bone island or fibrousdysplasia. [facility], Radiant Results Inft User - 04/08/2020 7:05 PM CDTEXAM: CT ABDOMEN AND PELVISWITHOUT CONTRASTHISTORY: Lower abdominal pain. Diverticulitis suspected.COMPARISON: CT Abdomen Pelvis with nfxagmccedi50/6/2019.DOSE: Total exam DLP [243] mGy-cmTECHNIQUE AND FINDINGS: Contiguous axialimaging from the level of the lungbases through the pubic symphysis was performed without the intravenousadministration of contrast. Coronal and sagittal reconstructions wereobtained. Auto mA and/or iterative reconstruction were used to reduceradiation dose.FINDINGS:LOWER THORAX: The lungs bases are clear. No cardiomegaly.LIVER: No focal hepatic lesions. Normal liver contour.GALLBLADDER AND BILIARYTREE: No biliary ductal dilation. No gallbladderwall thickening.SPLEEN: No splenomegaly.PANCREAS: No ductal dilation or masses.ADRENAL GLANDS: No adrenal nodules.KIDNEYS: No hydronephrosis, stones, ormasses.PERITONEUM AND RETROPERITONEUM: No free air or fluid.LYMPH NODES: No lymphadenopathy.GI TRACT: No dilated bowel. Sigmoid colon diverticulosis with segment circumferentialmural thickening with pericolonic inflammatory stranding, consistent withacute diverticulitis.The appendix is air-filled and mildly distended and without significantperiappendiceal inflammatory stranding.PELVIS/BLADDER: The urinary bladder is mildly distended and the ahmadi arenot significantly thickened with regard to the observed degree ofdistention.VESSELS: Unremarkable.BONES AND SOFT TISSUES: No suspicious lytic or sclerotic bony lesions.A 2.2 cm mixed sclerotic and lytic lesion within the right ilium, notsignificantly changed from comparison. This lesion demonstrates a narrowzone of transition. This lesion may represent a bone island or fibrousdysplasia.IMPRESSIONFindings of acute diverticulitis at the sigmoid colon. No extraluminal gasor fluid collection.Preliminary Report Dictated by Resident: Melvin Quijano, Kallie Cisneros MD., have reviewed this study and agree with the abovereport.[facility] GRP A STREP (MOLECULAR)2020-04-08 13:32:00 Test Item Value Reference Range Interpretation Comments POCT GP A STREP (test code = neg Negative - Negative 32897-3) Lab Interpretation (test code = Normal 26305-8) [facility] GRP A STREP (MOLECULAR)2020-04-08 13:32:00 Test Item Value Reference Range Interpretation Comments POCT GP A STREP (test code = neg Negative - Negative 67545-8) Lab Interpretation (test code = Normal 01219-0) [facility] GRP A STREP (MOLECULAR)2020-04-08 13:32:00 Test Item Value Reference Range Interpretation Comments POCT GP A STREP (test code = neg Negative - Negative 93116-6) Lab Interpretation (test code = Normal 76236-3) [facility]"
[2021-10-23] MEDS ORDERED: ONDANSETRON 4 MG/2 ML VIAL ONE (18:26)
[2021-10-23] MEDS ORDERED: NA CHLORIDE 0.9% 1,000 ML ONE (18:26)
[2021-10-23] MEDS ORDERED: MORPHINE 4 MG/ML SYR ONE (18:26)
[2021-10-23 18:46] LABS: Absolute Lymphocytes (CBC) 1.8 K/uL (0.7-4.9); Hematocrit 37.4 % (39.6-49.0); Lymphocytes % 22.2 % (15.3-44.8); MPV 8.2 fL (7.6-11.3); RBC Red Blood Cell Count 4.21 M/uL (4.33-5.43)
[2021-10-23 19:00] LABS: ALT/SGPT 20 U/L (12-78); AST/SGOT 12 U/L (15-37); Albumin 3.1 g/dL (3.4-5.0); Alkaline Phosphatase 98 U/L (45-117); BUN Blood Urea Nitrogen 19 mg/dL (7-18); Bicarbonate 25 mmol/L (21-32); Bilirubin Direct < 0.1 mg/dL (0-0.2); Bilirubin Total 0.2 mg/dL (0.2-1.0); Glucose Level 106 mg/dL (74-106); Lipase 109 U/L (73-393); Potassium 3.7 mmol/L (3.5-5.1); Protein, Total 6.9 g/dL (6.4-8.2); Sodium Level 139 mmol/L (136-145)
[2021-10-23] MEDS ORDERED: FENTANYL CITR 100 MCG/2 ML ONE (19:55)
--- NOTE | 2021-10-23 20:45 | RAD REPORT ---
EXAM DESCRIPTION: CT - Abdomen Pelvis W Contrast - 10/23/2021 8:16 pm CLINICAL HISTORY: ABD PAIN COMPARISON: CT study April 2021 TECHNIQUE: Biphasic, helical CT imaging of the abdomen and pelvis was performed following 100 ml non -ionic IV contrast. No oral contrast administered. All CT scans are performed using dose optimization technique as appropriate and may include automated exposure control or mA/KV adjustment according to patient size. FINDINGS: No suspicious findings in the lung bases. The liver, spleen, and pancreas show no suspicious findings. Gallbladder and biliary tree are also wi thout suspicious finding. Symmetric renal function is seen with no hydronephrosis or suspicious renal mass. No pyelonephritis o r acute parenchymal process. No bladder abnormalities. No adrenal abnormalities. No stomach or small bowel acute finding. No appendicitis. From cecum through descending colon there a re no acute findings. Patient does have diverticulosis more prominent than typically seen for age. Pr oximal sigmoid shows wall thickening and edema. There is stranding in the adjacent fat. No extralumin al free air. No pneumatosis or free fluid. No hernia, mass or bulky lymphadenopathy. No suspicious bony findings. IMPRESSION: Acute diverticulitis of the proximal sigmoid colon. Location is similar to the April 29, 2021 study. No abscess, extraluminal free air or other emergent component.
--- NOTE | 2021-10-23 21:37 | EDPHYS ---
Physician Documentation [facility] Name: Phoenix Trivedi Age: 46 yrs Sex: Male : 1975 Arrival Date: 10/23/2021 Time: 17:55 Bed 19 Private MD: ED Physician Escobar Conn HPI: 10/23 19:27 This 46 yrs old Male presents to ER via Ambulatory with complaints of kb Abdominal Pain. 19:27 The patient presents with abdominal pain in the lower abdomen. Onset: The kb symptoms/episode began/occurred last night. The symptoms do not radiate. Associated signs and symptoms: Pertinent positives: nausea, Pertinent negatives: diarrhea, fever, vomiting. The symptoms are described as constant. Modifying factors: The symptoms are alleviated by nothing, the symptoms are aggravated by pressure. Severity of pain: At its worst the pain was moderate in the emergency department the pain is unchanged. The patient has experienced similar episodes in the past, a few times. The patient has not recently seen a physician. Historical: - Allergies: 18:05 No Known Allergies; vg1 - Home Meds: 18:05 None [Active]; vg1 - PMHx: 18:05 Diverticulitis; vg1 - PSHx: 18:05 None; vg1 - Immunization history:: Client reports receiving the 2nd dose of the Covid vaccine. - Social history:: Smoking status: Patient denies any tobacco usage or history of. ROS: 19:25 Constitutional: Negative for fever, chills, and weight loss. kb 19:25 Abdomen/GI: Positive for abdominal pain, nausea. 19:25 All other systems are negative. Exam: 19:25 Constitutional: This is a well developed, well nourished patient who is awake, alert, kb and in no acute distress. Head/Face: Normocephalic, atraumatic. ENT: Moist Mucous membranes Cardiovascular: Regular rate and rhythm with a normal S1 and S2. No gallops, murmurs, or rubs. No pulse deficits. Respiratory: Respirations even and unlabored. No increased work of breathing. Talking in full sentences Skin: Warm, dry with normal turgor. Normal color. MS/ Extremity: Pulses equal, no cyanosis. Neurovascular intact. Full, normal range of motion. Neuro: Awake and alert, GCS 15, oriented to person, place, time, and situation. Moves all extremities. Normal gait. Psych: Awake, alert, with orientation to person, place and time. Behavior, mood, and affect are within normal limits. 19:25 Abdomen/GI: Inspection: abdomen appears normal, Bowel sounds: normal, Palpation: soft, in all quadrants, mild abdominal tenderness, in the right lower quadrant, moderate abdominal tenderness, in the left lower quadrant. Vital Signs: 18:04 BP 113 / 78; Pulse 76; Resp 16; Temp 98.9; Pulse Ox 100% ; Weight 72.57 kg; Height 5 vg1 ft. 8 in. (172.72 cm); Pain 8/10; 19:31 BP 113 / 76; Pulse 54; Resp 18 S; Pulse Ox 100% on R/A; lg3 22:14 BP 114 / 78; Pulse 58; Resp 18 S; Pulse Ox 100% on R/A; lg3 18:04 Body Mass Index 24.33 (72.57 kg, 172.72 cm) vg1 MDM: 18:08 Patient medically screened. kb 19:26 Data reviewed: vital signs, nurses notes. Data interpreted: Pulse oximetry: on room air kb is 100 %. Interpretation: normal. 21:36 Counseling: I had a detailed discussion with the patient and/or guardian regarding: the kb historical points, exam findings, and any diagnostic results supporting the discharge/admit diagnosis, lab results, radiology results, the need for outpatient follow up, a family practitioner, to return to the emergency department if symptoms worsen or persist or if there are any questions or concerns that arise at home. ED course: Pt does not want to be admitted. States he wants to go home and will return for worsening symptoms/inability to tolerate medications. . 10/23 18:08 Order name: Basic Metabolic Panel; Complete Time: 19:02 kb 10/23 18:08 Order name: CBC with Diff; Complete Time: 18:57 kb 10/23 18:08 Order name: Hepatic Function; Complete Time: 19:02 kb 10/23 18:08 Order name: Lipase; Complete Time: 19:02 kb 10/23 18:15 Order name: CT Abd/Pelvis - IV Contrast Only; Complete Time: 20:47 kb 10/23 18:08 Order name: IV Saline Lock; Complete Time: 18:38 kb 10/23 18:08 Order name: Labs collected and sent; Complete Time: 18:38 kb Administered Medications: 18:30 Drug: NS 0.9% 1000 ml Route: IV; Rate: 1000 ml; Site: right forearm; bp 20:04 Follow up: IV Intake: 1000ml lg3 22:18 Follow up: IV Intake: 1000ml lg3 18:30 Drug: Zofran (Ondansetron) 4 mg Route: IVP; Site: right forearm; bp 19:59 Follow up: Response: No adverse reaction lg3 18:30 Drug: morphine 4 mg Route: IVP; Site: right forearm; bp 19:59 Follow up: Response: No adverse reaction lg3 19:58 Drug: fentaNYL (PF) 50 mcg Route: IVP; Site: right antecubital; lg3 19:59 Follow up: Response: No adverse reaction; RASS: Alert and Calm (0) lg3 22:17 Drug: Flagyl (metroNIDAZOLE) 500 mg Route: PO; lg3 22:17 Follow up: Response: No adverse reaction lg3 22:17 Drug: Cipro (ciprofloxacin) 500 mg Route: PO; lg3 22:17 Follow up: Response: No adverse reaction lg3 Disposition: 10/24 07:51 Co-signature as Attending Physician, Escobar Conn MD I agree with the assessment and piero plan of care. Disposition Summary: 10/23/21 21:37 Discharge Ordered Location: Home kb Condition: Stable kb Diagnosis - Diverticulitis of intestine, part unspecified, without perforation or abscess kb without bleeding Followup: kb - With: Emergency Department - When: As needed - Reason: Worsening of condition Followup: kb - With: Private Physician - When: 2 - 3 days - Reason: Recheck today's complaints, Continuance of care, Re-evaluation by your physician Discharge Instructions: - Discharge Summary Sheet kb - Diverticulitis, [place] kb Forms: - Medication Reconciliation Form kb - Thank You Letter kb - Antibiotic Education kb - Prescription Opioid Use kb Prescriptions: - Flagyl 500 mg Oral Tablet - take 1 tablet by ORAL route every 8 hours for 10 days; 30 tablet; Refills: 0, kb Product Selection Permitted - Zofran 4 mg Oral Tablet - take 1 tablet by ORAL route every 6 hours As needed; 20 tablet; Refills: 0, kb Product Selection Permitted - Cipro 500 mg Oral Tablet - take 1 tablet by ORAL route every 12 hours for 10 days; 20 tablet; Refills: 0, kb Product Selection Permitted - Diclofenac Sodium 75 mg Oral tablet,delayed release (DR/EC) - take 1 tablet by ORAL route 2 times per day As needed; 30 tablet; Refills: 0, kb Product Selection Permitted Signatures: Dispatcher [employer] Joan Simon, CYNTHIA BACON-Escobar Mcrae MD MD cha Peltier, Brian, RN RN bp Ayah Ngo RN RN lg3 Chey Smith RN RN vg1 Corrections: (The following items were deleted from the chart) 10/23 19:27 19:27 The patient has not experienced similar symptoms in the past, kb kb
--- NOTE | 2021-10-23 21:37 | ER ---
Nurse's Notes [facility] Name: Phoenix Trivedi Age: 46 yrs Sex: Male : 1975 Arrival Date: 10/23/2021 Time: 17:55 Bed 19 Private MD: Diagnosis: Diverticulitis of intestine, part unspecified, without perforation or abscess without bleeding Presentation: 10/23 18:04 Chief complaint: Patient states: ABD pain since yesterday, states nausea, denies V/D. vg1 pt states has a hx of diverticulitis . Coronavirus screen: Vaccine status: Patient reports receiving the 2nd dose of the covid vaccine. Client denies travel out of the [place] in the last 14 days. Ebola Screen: Patient negative for fever greater than or equal to 101.5 degrees Fahrenheit, and additional compatible Ebola Virus Disease symptoms. Initial Sepsis Screen: Does the patient meet any 2 criteria? No. Patient's initial sepsis screen is negative. Does the patient have a suspected source of infection? No. Patient's initial sepsis screen is negative. Risk Assessment: Do you want to hurt yourself or someone else? Patient reports no desire to harm self or others. Onset of symptoms was October 22, 2021. 18:04 Method Of Arrival: Ambulatory vg1 18:04 Acuity: SIVAKUMAR 3 vg1 Triage Assessment: 18:05 General: Appears in no apparent distress. uncomfortable, Behavior is calm, cooperative. vg1 Pain: Complains of pain in right upper quadrant, left upper quadrant, right lower quadrant and left lower quadrant Pain currently is 8 out of 10 on a pain scale. GI: Abdomen is flat, non-distended, Reports nausea. Historical: - Allergies: 18:05 No Known Allergies; vg1 - Home Meds: 18:05 None [Active]; vg1 - PMHx: 18:05 Diverticulitis; vg1 - PSHx: 18:05 None; vg1 - Immunization history:: Client reports receiving the 2nd dose of the Covid vaccine. - Social history:: Smoking status: Patient denies any tobacco usage or history of. Screenin:05 Abuse screen: Denies threats or abuse. Denies injuries from another. Nutritional bp screening: No deficits noted. Tuberculosis screening: No symptoms or risk factors identified. Fall Risk None identified. Assessment: 18:05 General: SEE TRIAGE NOTE. bp 19:28 Reassessment: Patient appears in no apparent distress at this time. No changes from lg3 previously documented assessment. Patient and/or family updated on plan of care and expected duration. Pain level reassessed. Patient is alert, oriented x 3, equal unlabored respirations, skin warm/dry/pink. General: Appears uncomfortable, Behavior is calm, cooperative. Pain: Complains of pain in right lower quadrant and left lower quadrant Pain currently is 8 out of 10 on a pain scale. Neuro: Level of Consciousness is awake, alert, obeys commands, Oriented to person, place, time, situation. Respiratory: Airway is patent Trachea midline Respiratory effort is even, unlabored, Respiratory pattern is regular, symmetrical. GI: Abdomen is flat. GI: Abd is soft X 4 quads Abdomen is tender to palpation Guarding noted in right lower quadrant and left lower quadrant. Vital Signs: 18:04 BP 113 / 78; Pulse 76; Resp 16; Temp 98.9; Pulse Ox 100% ; Weight 72.57 kg; Height 5 vg1 ft. 8 in. (172.72 cm); Pain 8/10; 19:31 BP 113 / 76; Pulse 54; Resp 18 S; Pulse Ox 100% on R/A; lg3 22:14 BP 114 / 78; Pulse 58; Resp 18 S; Pulse Ox 100% on R/A; lg3 18:04 Body Mass Index 24.33 (72.57 kg, 172.72 cm) vg1 ED Course: 17:55 Patient arrived in ED. am2 18:05 Triage completed. vg1 18:05 Arm band placed on. vg1 18:05 Patient has correct armband on for positive identification. Bed in low position. Call bp light in reach. Side rails up X2. 18:05 No provider procedures requiring assistance completed. bp 18:08 Joan Crawford FNP-C is PHCP. kb 18:08 Escobar Conn MD is Attending Physician. kb 18:12 Eric Mo, AMITA is Primary Nurse. bp 18:30 Inserted saline lock: 20 gauge in right forearm, using aseptic technique. Blood bp collected. 20:15 CT Abd/Pelvis - IV Contrast Only In Process Unspecified. EDMS 22:15 Patient admitted, IV remains in place. lg3 Administered Medications: 18:30 Drug: NS 0.9% 1000 ml Route: IV; Rate: 1000 ml; Site: right forearm; bp 20:04 Follow up: IV Intake: 1000ml lg3 22:18 Follow up: IV Intake: 1000ml lg3 18:30 Drug: Zofran (Ondansetron) 4 mg Route: IVP; Site: right forearm; bp 19:59 Follow up: Response: No adverse reaction lg3 18:30 Drug: morphine 4 mg Route: IVP; Site: right forearm; bp 19:59 Follow up: Response: No adverse reaction lg3 19:58 Drug: fentaNYL (PF) 50 mcg Route: IVP; Site: right antecubital; lg3 19:59 Follow up: Response: No adverse reaction; RASS: Alert and Calm (0) lg3 22:17 Drug: Flagyl (metroNIDAZOLE) 500 mg Route: PO; lg3 22:17 Follow up: Response: No adverse reaction lg3 22:17 Drug: Cipro (ciprofloxacin) 500 mg Route: PO; lg3 22:17 Follow up: Response: No adverse reaction lg3 Intake: 20:04 IV: 1000ml; Total: 1000ml. lg3 22:18 IV: 1000ml; Total: 2000ml. lg3 Outcome: 21:37 Discharge ordered by MD. mcclain 22:15 Admitted to Med/surg Report called to Kevin Brown lg3 22:15 Condition: improved 22:15 Instructed on the need for admit. 22:41 Patient left the ED. lg3 Signatures: Dispatcher [employer] EDMS Joan Crawford, CYNTHIA BACON-Elissa Saavedra am2 Eric Mo, RN RN bp Ayah Ngo, RN RN lg3 Chey Smith, RN RN vg1
[2021-10-23] MEDS ORDERED: metroNIDAZOLE 500 MG TABLET ONE (22:06)
[2021-10-23] MEDS ORDERED: CIPROFLOXACIN HCL 500 MG TAB ONE (22:06)
[2021-10-23 23:53] VITALS: O2SAT 100
[2021-10-23 23:54] VITALS: BP 114/78
[2021-10-23 23:56] VITALS: TEMP 98.9
== END 2021-10-23 22:41 | disposition home or self-care (01) ==
LOC: ER 17:54
DX: K57.32 Diverticulitis of large intestine without perforation or abscess without bleeding (principal)
CPT/HCPCS: 85025; 80048; 36415; 80076; 83690; 74177; Q9967; J3010; J7030; J2405; 99285

== ENCOUNTER 2022-03-15 16:28 | Emergency (ER) | payer OTHER ==
--- OUTSIDE RECORDS SUMMARY | 2022-03-15 16:32 | XMS REPORT | Continuity of Care Document ---
:1975 Author Organization [facility] t Address [address] [place] [address] Care Team Providers Name Role Phone PCP, DOES NOT HAVE A Primary Care Physician Unavailable Neli Segura Attending Clinician Unavailable Singer BAIN Attending Clinician Doctor Unassigned, Name Attending Clinician Unavailable Pcp, Does Not Have A Attending Clinician Lab, Fam Pob I Attending Clinician Unavailable Anene JUICE TESTER Attending Clinician ANENE Attending Clinician Unavailable Pob1, Care Clinic Attending Clinician Unavailable Enid Funk Attending Clinician Enid AVALOS Attending Clinician Unavailable Sterling SAINI Attending Clinician Unavailable Sterling SAINI Admitting Clinician Unavailable Payers Payer Name Policy Type Policy Number Effective Date Expiration Date S fatousondra [facility] [id number] 2020 00:00:00 MEDICAID PENDING PENDING 2019 2019 00:00:00 00:00:00 Problems Condition Condition Condition Status Onset Resolution Last Treating Co mments Source Name Details Category Date Date Treatment Clinician Date No known No known Disease Unive rs active active ity of problems problems [facility] [place] [facility] Allergies, Adverse Reactions, Alerts Allergy Allergy Status Severity Reaction(s) Onset Inactive Treating Comm ents Source Name Type Date Date Clinician NO KNOWN Drug Active [facility] ALLERGIE Class [facility] [place] [facility] [place] Social History Social Habit Start Date Stop Date Quantity Comments Source Exposure to Not sure [facility] SARS-CoV-2 (event) Medica l Branch Tobacco use and 2020-04-08 2020-04-08 Never used [facility] exposure 00:00:00 00:00:00 [facility] Sex Assigned At [birth year] [facility] 00:00:00 [facility]:00[facility]00 [facility] Smoking Status Start Date Stop Date Source Never smoker [facility] xas [facility] Medications Ordered Filled Start Stop Current Ordering Indication Dosage Frequency Signature Comments Components Source Medication Medication Date Date Medication? Clinician (SIG) Name Name HYDROcodone 2020- No 1{tbl} 1 tablet, Univers -acetaminop 5-27 05-27 Oral, ity of [place] (NORCO) 16:15: 15:20 [place] 10[place]325 [place] :00 dose, Nisha Medic al tablet 1 03/02/21 at [facility] h tablet 1115, Routine iopamidol 2020- No [id number] 120mL 120 mL, Univers (ISOVUE 5-27 05-27 Intravenou ity o f 370-500 mL) 14:55: 14:55 s, ONCE, 1 [place] injection 00 :00 dose, Nisha Medic al 120 mL 03/02/21 at Branch 1015, Routine ciprofloxac 0 Yes [id number] 500mg Take 1 Univers in HCl 500 5-27 tablet by ity of mg tablet 00:00: mouth 2 [place] 00 (two) Medical times Branch daily. metroNIDAZO Yes [id number] 500mg Take 1 Univers LE 500 mg 5-27 tablet by ity o f tablet 00:00: mouth 2 [place] 00 (two) Medical times Branch daily. ondansetron Yes [id number] 4mg Take 1 Univers 4 mg 5-27 [...] (scale 7-10). Indication s: acute pain amoxicillin 2019- No [id number] 1{tbl} Take 1 Univers -clavulanat 7-06 07-17 tablet by it y of e 00:00: 04:59 mouth 2 [place] (AUGMENTIN) 00 :00 (two) Medical 875-125 mg times Branch per tablet daily for 10 days. amoxicillin 2019- No [id number] 1{tbl} Take 1 Univers -clavulanat 7-06 07-17 tablet by it y of e 00:00: 04:59 mouth 2 [place] (AUGMENTIN) 00 :00 (two) Medical 875-125 mg times Branch per tablet daily for 10 days. ondansetron 2018-10 Yes [id number] 4mg Take 1 Univers (ZOFRAN 2-06 tablet by ity of ODT) 4 mg 00:00: mouth [place] disintegrat 00 every 8 Medic al ing tablet (eight) Branch hours as needed for Nausea and Vomiting (N/V) for up to 15 doses. traMADol 50 2018-10 Yes [id number] 50mg Take 1 Univers mg tablet 2-06 tablet by ity o f 00:00: mouth [place] 00 every 6 Medical (six) Branch hours as needed for Pain (scale 7-10) for up to 12 doses. ondansetron 2018-10 Yes [id number] 4mg Take 1 Univers (ZOFRAN 2-06 tablet by ity of ODT) 4 mg 00:00: mouth [place] disintegrat 00 every 8 Medic al ing tablet (eight) Branch hours as needed for Nausea and Vomiting (N/V) for up to 15 doses. traMADol 50 2018-10 Yes [id number] 50mg Take 1 Univers mg tablet 2-06 tablet by ity o f 00:00: mouth [place] 00 every 6 Medical (six) Branch hours as needed for Pain (scale 7-10) for up to 12 doses. ondansetron 2018-10 Yes [id number] 4mg Take 1 Univers (ZOFRAN 2-06 tablet by ity of ODT) 4 mg 00:00: mouth [place] disintegrat 00 every 8 Medic al ing tablet (eight) Branch hours as needed for Nausea and Vomiting (N/V) for up to 15 doses. traMADol 50 2018-10 Yes [id number] 50mg Take 1 Univers mg tablet 2-06 tablet by ity o f 00:00: mouth [place] 00 every 6 Medical (six) Branch hours as needed for Pain (scale 7-10) for up to 12 doses. ondansetron 2018-10 Yes [id number] 4mg Take 1 Univers (ZOFRAN 2-06 tablet by ity of ODT) 4 mg 00:00: mouth [place] disintegrat 00 every 8 Medic al ing tablet (eight) Branch hours as needed for Nausea and Vomiting (N/V) for up to 15 doses. traMADol 50 2018-10 Yes [id number] 50mg Take 1 Univers mg tablet 2-06 tablet by ity o f 00:00: mouth [place] 00 every 6 Medical (six) Branch hours as needed for Pain (scale 7-10) for up to 12 doses. ondansetron 2018-10 Yes [id number] 4mg Take 1 Univers (ZOFRAN 2-06 tablet by ity of ODT) 4 mg 00:00: mouth [place] disintegrat 00 every 8 Medic al ing tablet (eight) Branch hours as needed for Nausea and Vomiting (N/V) for up to 15 doses. traMADol 50 2018-10 Yes [id number] 50mg Take 1 Univers mg tablet 2-06 tablet by ity o f 00:00: mouth [place] 00 every 6 Medical (six) Branch hours as needed for Pain (scale 7-10) for up to 12 doses. ondansetron 2018-10 Yes [id number] 4mg Take 1 Univers (ZOFRAN 2-06 tablet by ity of ODT) 4 mg 00:00: mouth [place] disintegrat 00 every 8 Medic al ing tablet (eight) Branch hours as needed for Nausea and Vomiting (N/V) for up to 15 doses. traMADol 50 2018-10 Yes [id number] 50mg Take 1 Univers mg tablet 2-06 tablet by ity o f 00:00: mouth [place] 00 every 6 Medical (six) Branch hours as needed for Pain (scale 7-10) for up to 12 doses. ondansetron 2018-10 Yes [id number] 4mg Take 1 Univers (ZOFRAN 2-06 tablet by ity of ODT) 4 mg 00:00: mouth [place] disintegrat 00 every 8 Medic al ing tablet (eight) Branch hours as needed for Nausea and Vomiting (N/V) for up to 15 doses. traMADol 50 2018-10 Yes [id number] 50mg Take 1 Univers mg tablet 2-06 tablet by ity o f 00:00: mouth [place] 00 every 6 Medical (six) Branch hours as needed for Pain (scale 7-10) for up to 12 doses. ondansetron 2018-10 Yes [id number] 4mg Take 1 Univers (ZOFRAN 2-06 tablet by ity of ODT) 4 mg 00:00: mouth [place] disintegrat 00 every 8 Medic al ing tablet (eight) Branch hours as needed for Nausea and Vomiting (N/V) for up to 15 doses. traMADol 50 2018-10 Yes [id number] 50mg Take 1 Univers mg tablet 2-06 tablet by ity o f 00:00: mouth [place] 00 every 6 Medical (six) Branch hours as needed for Pain (scale 7-10) for up to 12 doses. ondansetron 2018-10 Yes [id number] 4mg Take 1 Univers (ZOFRAN 2-06 tablet by ity of ODT) 4 mg 00:00: mouth [place] disintegrat 00 every 8 Medic al ing tablet (eight) Branch hours as needed for Nausea and Vomiting (N/V) for up to 15 doses. traMADol 50 2018-10 Yes [id number] 50mg Take 1 Univers mg tablet 2-06 tablet by ity o f 00:00: mouth [place] 00 every 6 Medical (six) Branch hours as needed for Pain (scale 7-10) for up to 12 doses. traMADol 50 2018-10 Yes [id number] 50mg Take 1 Univers mg tablet 2-06 tablet by ity o f 00:00: mouth [place] 00 every 6 Medical (six) Branch hours as needed for Pain (scale 7-10) for up to 12 doses. ondansetron 2018-10- No [id number] 4mg Take 1 Univers (ZOFRAN 2-06 05-27 tablet by ity of ODT) 4 mg 00:00: 00:00 mouth [place] disintegrat 00 :00 every 8 Medic al ing tablet (eight) Branch hours as needed for Nausea and Vomiting (N/V) for up to 15 doses. Vital Signs Vital Name Observation Time Observation Value Comments Source Systolic blood 2021-03-02 14:20:00 124 mm[Hg] Univer [facility]ity [facility] [place] [facility] Diastolic blood 2021-03-02 14:20:00 80 mm[Hg] Unive rsity of [facility] [place] [facility] Heart rate 2021-03-02 14:20:00 71 /min [facility] [place] [facility] Body temperature 2021-03-02 14:20:00 36.56 Roxana Univ [facility] [place] [facility] Respiratory rate 2021-03-02 14:20:00 18 /min Univ [facility] [place] [facility] Body weight 2021-03-02 14:20:00 68.04 kg [facility] [place] [facility] BMI 2021-03-02 14:20:00 22.81 kg/m2 [facility] [place] [facility] Oxygen saturation in 2021-03-02 14:20:00 96 /min University of Arterial blood by [facility] Pulse oximetry Branch Systolic blood 2021-03-02 14:20:00 124 mm[Hg] Univer sity of [facility] [place] [facility] Diastolic blood 2021-03-02 14:20:00 80 mm[Hg] Unive rsity of [facility] [place] [facility] Heart rate 2021-03-02 14:20:00 71 /min [facility] [place] [facility] Body temperature 2021-03-02 14:20:00 36.56 Roxana [facility] [place] [facility] Respiratory rate 2021-03-02 14:20:00 18 /min Univ [facility] [place] [facility] Body weight 2021-03-02 14:20:00 68.04 kg [facility] [place] [facility] BMI 2021-03-02 14:20:00 22.81 kg/m2 [facility] [place] [facility] Oxygen saturation in 2021-03-02 14:20:00 96 /min University of Arterial blood by [facility] bill Pulse oximetry Branch Systolic blood 2020-04-08 13:16:00 106 mm[Hg] Univer sity of [facility] [place] [facility] Diastolic blood 2020-04-08 13:16:00 69 mm[Hg] Unive rsity of [facility] [place] [facility] Heart rate 2020-04-08 13:16:00 61 /min [facility] [place] [facility] Body temperature 2020-04-08 13:16:00 36.67 Roxana [facility] [place] [facility] Respiratory rate 2020-04-08 13:16:00 16 /min [facility] [place] [facility] Body height 2020-04-08 13:16:00 172.7 cm [facility] [place] [facility] Body weight 2020-04-08 13:16:00 68.04 kg [facility] [place] [facility] BMI 2020-04-08 13:16:00 22.81 kg/m2 Universi ty of [facility] Branch Oxygen saturation in 2020-04-08 13:16:00 100 /min University of Arterial blood by [facility] Pulse oximetry Branch Systolic blood 2020-04-08 13:16:00 106 mm[Hg] Univer sity of pressure [facility] [place] [facility] Diastolic blood 2020-04-08 13:16:00 69 mm[Hg] Unive rsity of pressure [facility] [place] [facility] Heart rate 2020-04-08 13:16:00 61 /min Universi ty of [facility] [place] [facility] Body temperature 2020-04-08 13:16:00 36.67 Roxana [facility] acute [facility] Respiratory rate 2020-04-08 13:16:00 16 /min [facility] acute hospital Body height 2020-04-08 13:16:00 172.7 cm [facility] [place] [facility] Body weight 2020-04-08 13:16:00 68.04 kg [facility] [place] [facility] BMI 2020-04-08 13:16:00 22.81 kg/m2 Universi ty of [facility] Branch Oxygen saturation in 2020-04-08 13:16:00 100 /min University of Arterial blood by [facility] Pulse oximetry Branch Procedures Procedure Date / Time Performed Performing Clinician Sourc e CT ABDOMEN PELVIS W 2021-03-02 15:00:56 Juan J Haney [facility] LIPASE 2021-03-02 14:28:00 Singer [facility] COMP. METABOLIC PANEL 2021-03-02 14:28:00 [facility] ([id number]) Medical [place] CBC WITH DIFF 2021-03-02 14:28:00 Singer [facility] [place] [facility] URINALYSIS 2021-03-02 14:28:00 Singer [facility] J [facility] NOTICE OF PRIVACY 2021-03-02 14:11:42 Doctor Unassigned, No Univ [facility] PRACTICES Name Medical Branch CT ABDOMEN PELVIS WO 2020-04-08 14:59:58 Amanda Rosado ity of [facility] [place] [facility] POCT GRP A STREP 2020-04-08 13:32:00 Nora Avalos [facility] (MOLECULAR) [facility] COVID-19 (PCR 2020-04-08 13:13:00 Amanda Rosado o f [place] MOLECULAR TESTING) Medical [facility] h Encounters Start End Encounter Admission Attending Care Care Encounter Source Date/Time Date/Time Type Type Clinicians Facility Department ID 2021-12-12 Outpatient Segura, STLMLC STLMLC [id number] Common 17:00:02 [facility] 2021-11-23 Outpatient Segura, STLMLC STLMLC [id number] Common 09:59:03 [facility] 2021-08-[address] [facility] [id number] Univers 21:40:21 ity of [facility] [place] [facility] 2021-12-12 2021-12-12 ambulatory STLMLC STLC [id number] Common 00:00:00 00:00:00 [facility] 2021-11-22 2021-11-22 ambulatory STLMLC STLMLC [id number] Common 00:00:00 00:00:00 [facility] 2021-03-02 2021-03-02 Emergency [facility] [id number] 09:14:00 10:27:00 Juan J Nagel [id number] [place] [address] [place] [address] [id number] [facility] 2021-03-02 2021-03-02 [facility] [id number] Univers 09:14:00 10:27:00 Juan J Nagel [id number] i ty of [place] 4[address] [place] [id number] 2021-03-02 2021-03-02 Orders Doctor ORI [id number] Univers 00:00:00 00:00:00 Only Unassigned, JENA [id number] [facility]y of [facility] 4.2.7.2.686 Reynaldo as [id number] [facility] 009 [place] 2021-03-02 2021-03-02 Orders Doctor ORI Maurer2.840.114 [id number] 00:00:00 00:00:00 Only Unassigned, JENA [id number] [facility] 4.2.7.2.686 [id number] 2020-05-03 2020-05-03 Outpatient R [facility] [id number] Univers 09:00:00 09:00:00 [id number] ity of [facility] [place] [facility] 2020-05-03 2020-05-03 Outpatient R [facility] [id number] Univers 09:00:00 09:00:00 ity [facility] 2020-05-03 2020-05-03 Telephone Pcp, ORI [id number] 00:00:00 00:00:00 Patient JENA [id number] Does Not HOSPITAL 4.2.7.2.686 Have A [id number] 2020-05-03 2020-05-03 Telephone Pcp, ORI [id number] Univers 00:00:00 00:00:00 Patient JENA 350.1.13.10 it y of [place] HOSP[place].2.[place] A [id number] [facility] 019 [place] 2020-05-02 2020-05-02 Laboratory Lab, [facility] 1.2.840.114 [id number] 16:42:03 17:02:03 Only Fam Pob I Health 350.1.13.10 [place] 4.2.7.2.686 Professio [id number] nal [facility] Office Building One 2020-05-02 2020-05-02 Laboratory Lab, [facility] Fam Pob I [facility] 1.2. [id number] [id number] Univers 16:42:03 17:02:03 Only Anene, Amanda Health 350.1.13.10 ity of [place] 4.2.7.2.686 Reynaldo as Professio [phone] Me dical [address] Office Building One 2020-05-02 2020-05-02 Outpatient R [facility] [id number] Univers 16:40:00 16:40:00 [id number] ity [facility] 2020-05-02 2020-05-02 Outpatient R [facility] [id number] Univers 16:40:00 16:40:00 ity of [facility] [place] [facility] 2020-05-02 2020-05-02 Outpatient R MICHELLE, [facility] [id number] Univers 16:40:00 16:40:00 AMANDA [facility] 2020-04-13 2020-04-13 Telephone Pob1, Acute [facility] [id number] 00:00:00 00:00:00 Care [facility] Health [id number] [place] 4.2.7.2.686 Professio [id number] nal [facility] Office [facility] One 2020-04-13 2020-04-13 Telephone Pob1, Acute [facility] 1.2.840.114 [id number] Univers 00:00:00 00:00:00 [facility] [id number] ity of [place] 4.2.7.2.686 Reynaldo as Professio [phone] Dc dicut nal [address] [place] [address] Office Building One 2020-04-11 2020-04-11 Outpatient MICHELLE [facility] [id number] Univers 13:20:00 13:20:00 [facility] 2020-04-08 2020-04-11 Urgent Pob1, Acute [facility] 1.2.840.114 [id number] 07:56:12 08:18:46 [facility] 350.1.13.10 [place] 4.2.7.2.686 Professio [phone] nal [facility] Office Building One 2020-04-08 2020-04-11 Urgent Pob1, Acute Care [facility] 1. 2.840.114 [id number] Univers 07:56:12 08:18:46 Care [facility], Nora A Health 350.1.13.10 ity of [place] 4.2.7.2.686 Reynaldo as Professio [phone] Dc dic[address] Office Building One 2020-04-11 2020-04-11 [facility] [id number] Univers 00:00:00 00:00:00 AMANDA [facility] 2020-04-08 2020-04-08 [facility] [id number] Univers 09:37:00 23:59:00 Encounter Amanda Nagel 350.1.13.10 ity [facility] 4.2.7.2.686 [facility] [id number] [address] 2020-04-08 2020-04-08 [facility] [id number] Univers 11:30:00 11:30:00 AMANDA [id number] [facility] 2020-04-08 2020-04-08 [facility] 1.2.840.114 [id number] Univers 09:22:00 09:36:00 Encounter Amanda Nagel 350.1.13.10 ity [facility] 4.2.7.2.686 [facility] [id number] [address] 2020-04-08 2020-04-08 Outpatient [facility] [id number] Univers 08:00:00 08:00:00 NORA [facility] 2019-09-11 2019-09-11 Emergency X [facility] ERT [id number] Univers 12:54:59 15:57:00 CUCA [facility] Results Test Test Test Results Result Source Description Time Comments Comments CT ABDOMEN 2021-02 1. ?Borderline findings of University PELVIS W -27 minimal acute, uncomplicated, of [place] CONTRAST 15:11:5 sigmoiddiverticulitis. 2. Medical 0 ?Bladder wall thickening may Branch be reactive from colonic inflammation, ormay represent cystitis. Correlation with urinalysis is recommended. Preliminary Report Dictated by Resident: Sylvain Ramsey MD., have reviewed this study and agree [...] head and shaft likely also represent boneislands. [facility], Radiant Results Inft User - 03/02/2021 10:12 [...] reviewed this study and agree with theabove report. Urinalysis 2021-03-02 14:55:55 Test Item Value Reference Range Interpretation Comme nts APPEARANCE (test code = Clear Clear 6460245686) COLOR (test code = 8809568167) Yellow Yellow PH (test code = 6216595779) 4.8-8.0 SP GRAVITY (test code = 1.003-1.030 1469369997) GLU U QUAL (test code = Normal Normal 3744628533) BLOOD (test code = 6038088073) Negative Negative KETONES (test code = 7324432834) Negative Negative PROTEIN (test code = 2887-8) Negative Negative UROBILIN (test code = 2.0 mg/dL Normal A 9262833324) BILIRUBIN (test code = Negative Negative 4998597603) NITRITE (test code = 4428572671) Negative Negative LEUK SHAYY (test code = Negative Negative 1092232498) RBC/HPF (test code = 4468403712) See_Comment [Automated message] The system which ge nerated this result transmit huber reference range: 0 - 3 HP F. The reference range was not used to interpret th is result as normal/abnormal . WBC/HPF (test code = 5212640042) <1 See_Comment [Automated message] The system which ge nerated this result transmit huber reference range: 0 - 5 HP F. The reference range was not used to interpret th is result as normal/abnormal . BACTERIA (test code = Negative Negative 6503778023) MUCOUS (test code = 7288206677) Slight Negative LPF A Lab Interpretation (test code = Abnormal 97606-8) [facility] [id number] 14:46:20 Test Item Value Reference Range Interpretation Comments NA (test code = 139 mmol/L 135-145 4754011444) K (test code = 4.0 mmol/L 3.5-5.0 6086253975) CL (test code = 104 mmol/L 98-108 8008471009) CO2 TOTAL (test code 28 mmol/L 23-31 = 5322988564) AGAP (test code = 2-16 5594369369) BUN (test code = 15 mg/dL 7-23 1398720947) GLUCOSE (test code = 92 mg/dL 70-110 6438107520) CREATININE (test code 1.00 mg/dL 0.60-1.25 = 9787035148) TOTAL BILI (test code 0.7 mg/dL 0.1-1.1 = 8044715724) CALCIUM (test code = 9.4 mg/dL 8.6-10.6 2839749127) T PROTEIN (test code 7.3 g/dL 6.3-8.2 = 1829303236) ALBUMIN (test code = 4.3 g/dL 3.5-5.0 8796289647) ALK PHOS (test code = 87 U/L 34-122 1020055737) ALTv (test code = 15 U/L 5-50 1742-6) AST(SGOT) (test code 25 U/L 13-40 = 5809602944) eGFR (test code = mL/min/1.73m2 4865330222) KACI (test code = KACI) Association of [...] or urine or abnormalities in imaging tests). [facility] Tzlea2345-15-11 14:46:05 Test Item Value Reference Range Interpretation Comments LIPASE (test code = 8678785337) 77 U/L 0-220 Lab Interpretation (test code = Normal 05924-8) [facility] with [id number] 14:40:01 Test Item Value Reference Range Interpretation Comments WBC (test code = See_Comment [Automated 6234-2) message] The sy stem which generated this result transmitted reference range : 4.20 - 10.70 10*3/?L. The reference range was not used to interpret this result as normal/abnormal . RBC (test code = See_Comment [Automated 586-8) message] The sy stem which generated this [...] RDW-SD (test code = 41.2 fL 38.5-51.6 90482-2) RDW-CV (test code = 12.6 % 12.1-15.4 788-0) PLT (test code = See_Comment [Automated 777-3) message] The sy stem which generated this result transmitted reference range : 150 - 328 10*3/ ?L. The reference r meenu was not used to interpret this result as normal/abnormal . MPV (test code = 10.0 fL 9.8-13.0 88254-7) NRBC/100 WBC (test See_Comment [Automat ed code = 0716599527) message] The system which generated this result transmitted reference range : 0.0 - 10.0 /100 WBCs. The refer ence range was not u sed to interpret th is result as normal/abnormal . NRBC x10^3 (test code <0.01 See_Comment [Auto mated = 4154563216) message] The s ystem which generated this result transmitted reference range : 10*3/?L. The reference range was not used to interpret this result as normal/abnormal . GRAN MAT (NEUT) % 76.1 % (test code = 770-8) IMM GRAN % (test code 0.40 % = 1927516092) LYMPH % (test code = 13.9 % 736-9) MONO % (test code = 8.3 % 5905-5) EOS % (test code = 0.9 % 713-8) BASO % (test code = 0.4 % 706-2) GRAN MAT x10^3(ANC) 8.03 10*3/uL 1.99-6.95 H (test code = 2166326161) IMM GRAN x10^3 (test 0.04 10*3/uL 0.00-0.06 code = 8088056045) LYMPH x10^3 (test code 1.47 10*3/uL 1.09-3.23 = 731-0) MONO x10^3 (test code 0.87 10*3/uL 0.36-1.02 = 742-7) EOS x10^3 (test code = 0.09 10*3/uL 0.06-0.53 711-2) BASO x10^3 (test code 0.04 10*3/uL 0.01-0.09 = 704-7) Lab Interpretation Abnormal (test code = 83864-8) [facility] (PCR MOLECULAR TESTING)2020-04-10 01:22:00 Test Item Value Reference Range Interpretation Comments SARS-CoV-2 PCR (test Not Detected Not Detected code = 89875-3) KACI (test code = KACI) [employer] Fusion SARS-CoV-2 Assay is a real-time RT-PCR test intended for the qualitative detection of RNA from SARS-CoV-2 from nasopharyngeal (PAPER WINDER) specimens. It is used under Emergency Use [...] indicated. Lab Interpretation Normal (test code = 08098-6) [facility] PELVIS WO [id number] 00:04:40 Findings of acute diverticulitis at the sigmoid colon. No extraluminal gasor fluid collection. Preliminary Report Dictated by Resident: Kallie Wolfe MD., have reviewed this study and agree with the abovereport.EXAM: CT ABDOMEN AND PELVIS WITHOUT CONTRAST HISTORY: Lower abdomina l pain. Diverticulitis suspected. COMPARISON: CT Abdomen Pelvis with kvxlnccyjtd51/6/2019. DOSE: Total exam DLP [243] mGy-cm TECHNIQUE [...] may represent a bone island or fibrousdysplasia. [facility], Radiant Results Inft User - 04/08/2020 7:05 PM CDTEXAM: CT ABDOMEN AND PELVISWITHOUT CONTRASTHISTORY: Lower abdominal pain. Diverticulitis suspected.COMPARISON: CT Abdomen Pelvis with juxdwmzgqep17/6/2019.DOSE: Total exam DLP [243] mGy-cmTECHNIQUE AND FINDINGS: [...] reviewed this study and agree with the abovereport.[facility] GRP A STREP (MOLECULAR)2020-04-08 13:32:00 Test Item Value Reference Range Interpretation Comments POCT GP A STREP (test code = neg Negative - Negative 18215-7) Lab Interpretation (test code = Normal 22777-1) [facility] GRP A STREP (MOLECULAR)2020-04-08 13:32:00 Test Item Value Reference Range Interpretation Comments POCT GP A STREP (test code = neg Negative - Negative 37675-0) Lab Interpretation (test code = Normal 28921-7) [facility] GRP A STREP (MOLECULAR)2020-04-08 13:32:00 Test Item Value Reference Range Interpretation Comments POCT GP A STREP (test code = neg Negative - Negative 96456-5) Lab Interpretation (test code = Normal 66945-8) [facility]"
[2022-03-15] MEDS ORDERED: ONDANSETRON 4 MG/2 ML VIAL ONE (16:48)
[2022-03-15] MEDS ORDERED: MORPHINE 4 MG/ML SYR ONE (16:48)
[2022-03-15] MEDS ORDERED: KETOROLAC 30 MG/ML INJ ONE (16:48)
[2022-03-15] MEDS ORDERED: NA CHLORIDE 0.9% 1,000 ML ONE (16:49)
[2022-03-15 17:00] LABS: Absolute Lymphocytes (CBC) 0.8 K/uL (0.7-4.9); Hematocrit 39.8 % (39.6-49.0); Lymphocytes % 13.1 % (15.3-44.8); MPV 7.5 fL (7.6-11.3); RBC Red Blood Cell Count 4.52 M/uL (4.33-5.43)
[2022-03-15 17:17] LABS: Albumin 3.5 g/dL (3.4-5.0); Bilirubin Total 0.4 mg/dL (0.2-1.0); Potassium 3.5 mmol/L (3.5-5.1); Protein, Total 7.1 g/dL (6.4-8.2)
--- NOTE | 2022-03-15 17:56 | RAD REPORT ---
EXAM DESCRIPTION: CT - Abdomen Pelvis W Contrast - 03/15/2022 5:40 pm CLINICAL HISTORY: Abdominal pain/left lower quadrant pain COMPARISON: October 2021 TECHNIQUE: Computed axial tomography of the abdomen pelvis was obtained. 100 cc Isovue-300 was admin istered intravenously. Oral contrast was not requested which limits evaluation of bowel and appendix All CT scans are performed using dose optimization technique as appropriate and may include automated exposure control or mA/KV adjustment according to patient size. FINDINGS: The liver, spleen, pancreas, adrenal and kidneys appear unremarkable. Normal appendix. Diverticula stem from the colon. Mild stranding adjacent to the descending colon. No abscess. No free air IMPRESSION: Mild descending colon diverticulitis
--- NOTE | 2022-03-15 18:02 | ER ---
Nurse's Notes [facility] Name: Phoenix Trivedi Age: 46 yrs Sex: Male : 1975 Arrival Date: 03/15/2022 Time: 16:30 Bed 10 Private MD: Yayo Segura Diagnosis: Diverticulitis of large intestine without perforation or abscess without bleeding Presentation: 03/15 16:32 Chief complaint: Patient states: Believes he has Diverticulitis flare-up for 2 days. ll1 Abd pain with slight diarrhea. No fever. Coronavirus screen: Vaccine status: Patient reports receiving the 2nd dose of the covid vaccine. Client denies travel out of the [place] in the last 14 days. At this time, the client does not indicate any symptoms associated with coronavirus-19. Ebola Screen: Patient denies travel to an Ebola-affected area in the 21 days before illness onset. Initial Sepsis Screen: Does the patient meet any 2 criteria? No. Patient's initial sepsis screen is negative. Does the patient have a suspected source of infection? Yes: Acute abdominal pain. Risk Assessment: Do you want to hurt yourself or someone else? Patient reports no desire to harm self or others. Onset of symptoms was March 14, 2022. 16:32 Method Of Arrival: Ambulatory ll1 16:32 Acuity: SIVAKUMAR 3 ll1 Triage Assessment: 16:34 General: Appears uncomfortable, Behavior is cooperative, appropriate for age. Pain: ll1 Complains of pain in abdomen. GI: Reports lower abdominal pain, upper abdominal pain, diarrhea. Historical: - Allergies: 16:33 No Known Allergies; ll1 - PMHx: 16:33 Diverticulitis; ll1 - PSHx: 16:33 None; ll1 - Immunization history:: Client reports receiving the 2nd dose of the Covid vaccine. - Social history:: Smoking status: Patient denies any tobacco usage or history of. Screenin:36 Abuse screen: Denies threats or abuse. Denies injuries from another. Nutritional ld1 screening: No deficits noted. Tuberculosis screening: No symptoms or risk factors identified. Fall Risk None identified. Assessment: 16:36 General: Appears in no apparent distress. comfortable, Behavior is calm, cooperative, ld1 appropriate for age. Pain: Complains of pain in abdomen Pain does not radiate. Pain currently is 8 out of 10 on a pain scale. Quality of pain is described as sharp, throbbing. Neuro: Level of Consciousness is awake, alert, obeys commands, Oriented to person, place, time, situation. Cardiovascular: Capillary refill < 3 seconds Patient's skin is warm and dry. Rhythm is regular. Respiratory: Airway is patent Respiratory effort is even, unlabored. GI: Bowel sounds present X 4 quads. Abd is soft Abdomen is tender to palpation X 4 quads. : No signs and/or symptoms were reported regarding the genitourinary system. EENT: No signs and/or symptoms were reported regarding the EENT system. Derm: No signs and/or symptoms reported regarding the dermatologic system. Musculoskeletal: No signs and/or symptoms reported regarding the musculoskeletal system. 16:52 Reassessment: Patient appears in no apparent distress at this time. Patient and/or ld1 family updated on plan of care and expected duration. Pain level reassessed. Patient is alert, oriented x 3, equal unlabored respirations, skin warm/dry/pink. Vital Signs: 16:32 BP 123 / 67; Pulse 88; Resp 18; Temp 98.8; Pulse Ox 100% ; Weight 70.31 kg; Height 5 ll1 ft. 8 in. (172.72 cm); Pain 8/10; 16:36 BP 131 / 73; Pulse 84; Resp 18; Pulse Ox 100% on R/A; ld1 16:52 BP 126 / 72; Pulse 81; Resp 18; Pulse Ox 100% on R/A; ld1 16:32 Body Mass Index 23.57 (70.31 kg, 172.72 cm) ll1 ED Course: 16:30 Patient arrived in ED. mr 16:30 Yayo Segura DO is Private Physician. mr 16:31 Chava Durbin MD is Attending Physician. jr11 16:33 Triage completed. ll1 16:34 Cari Kirk, AMITA is Primary Nurse. ld1 16:34 Arm band placed on Patient placed in an exam room, on a stretcher. ll1 16:36 Patient has correct armband on for positive identification. Placed in gown. Bed in low ld1 position. Call light in reach. Side rails up X2. air sampling and monitoring on. Pulse ox on. NIBP on. Door closed. Noise minimized. Warm blanket given. 16:36 No provider procedures requiring assistance completed. ld1 16:52 Inserted saline lock: 20 gauge in right antecubital area, using aseptic technique. ld1 Blood collected. 17:42 CT Abd/Pelvis - IV Contrast Only: do not wait for Cr, please scan In Process EDFL Unspecified. 18:02 Dk Becker MD is Referral Physician. jr11 18:12 IV discontinued, intact, bleeding controlled, No redness/swelling at site. ld1 Administered Medications: 16:51 Drug: Ketorolac 15 mg Route: IVP; Site: right antecubital; ld1 16:51 Drug: NS 0.9% 1000 ml Route: IV; Rate: 1 bolus; Site: right antecubital; ld1 16:52 Drug: morphine 4 mg Route: IVP; Infused Over: 4 mins; Site: right antecubital; ld1 16:52 Drug: Zofran (Ondansetron) 4 mg Route: IVP; Site: right antecubital; ld1 18:02 Drug: Cipro (ciprofloxacin) 500 mg Route: PO; ld1 18:02 Drug: Flagyl (metroNIDAZOLE) 500 mg Route: PO; ld1 18:02 Drug: Dilaudid (HYDROmorphone) 0.5 mg Route: IVP; Site: right antecubital; ld1 Medication: 16:36 VIS not applicable for this client. ld1 Outcome: 18:01 Discharge ordered by . jr11 18:12 Discharged to home ambulatory. ld1 18:12 Condition: stable 18:12 Discharge instructions given to patient, Instructed on discharge instructions, follow up and referral plans. Demonstrated understanding of instructions, follow-up care, medications, Prescriptions given X 3. 18:12 Patient left the ED. ld1 Signatures: Dispatcher [employer] EDFL Bret Little Gold Salazar RN RN ll1 Cari Kirk RN RN ld1 Chava Durbin MD MD jr11
--- NOTE | 2022-03-15 18:02 | EDPHYS ---
Physician Documentation [facility] Name: Phoenix Trivedi Age: 46 yrs Sex: Male : 1975 Arrival Date: 03/15/2022 Time: 16:30 Bed 10 Private MD: [facility] ED Physician Chava Durbin HPI: 03/15 16:42 This 46 yrs old Male presents to ER via Ambulatory with complaints of jr11 Abdominal Pain. 16:42 The patient presents with abdominal pain in the left lower quadrant. Onset: The jr11 symptoms/episode began/occurred 2 day(s) ago. The symptoms do not radiate. Associated signs and symptoms: none. The symptoms are described as achy, dull, sharp. Modifying factors: The symptoms are alleviated by nothing, the symptoms are aggravated by movement. Severity of pain: At its worst the pain was severe in the emergency department the pain is actually worse. The patient has experienced similar episodes in the past, several times, at least 7 episodes of diverticulitis, has never follow up surgery . Historical: - Allergies: 16:33 No Known Allergies; ll1 - PMHx: 16:33 Diverticulitis; ll1 - PSHx: 16:33 None; ll1 - Immunization history:: Client reports receiving the 2nd dose of the Covid vaccine. - Social history:: Smoking status: Patient denies any tobacco usage or history of. ROS: 16:42 All other systems are negative. jr11 Exam: 16:42 Constitutional: This is a well developed, well nourished patient who is awake, alert, jr11 and in no acute distress. Head/Face: Normocephalic, atraumatic. Eyes: Extra-ocular motions intact. Lids and lashes normal. Conjunctiva and sclera are non-icteric and not injected. Cornea within normal limits. Periorbital areas with no swelling, redness, or edema. ENT: Nares patent. No nasal discharge, no septal abnormalities noted. Oropharynx with no redness, swelling, or masses, exudates, or evidence of obstruction, uvula midline. Mucous membranes moist. Chest/axilla: Normal chest wall appearance and motion. Nontender with no deformity. No lesions are appreciated. Cardiovascular: Regular rate and rhythm with a normal S1 and S2. No gallops, murmurs, or rubs. Normal PMI, no JVD. No pulse deficits. Respiratory: Lungs have equal breath sounds bilaterally, clear to auscultation and percussion. No rales, rhonchi or wheezes noted. No increased work of breathing, no retractions or nasal flaring. Abdomen/GI: TTP LLQ, +vol guarding Skin: Warm, dry with normal turgor. Normal color with no rashes, no lesions, and no evidence of cellulitis. MS/ Extremity: Pulses equal, no cyanosis. Neurovascular intact. Full, normal range of motion. Neuro: Awake and alert, GCS 15, oriented to person, place, time, and situation. No gross motor or sensory deficits. Vital Signs: 16:32 BP 123 / 67; Pulse 88; Resp 18; Temp 98.8; Pulse Ox 100% ; Weight 70.31 kg; Height 5 ll1 ft. 8 in. (172.72 cm); Pain 8/10; 16:36 BP 131 / 73; Pulse 84; Resp 18; Pulse Ox 100% on R/A; ld1 16:52 BP 126 / 72; Pulse 81; Resp 18; Pulse Ox 100% on R/A; ld1 16:32 Body Mass Index 23.57 (70.31 kg, 172.72 cm) ll1 MDM: 16:39 Patient medically screened. [facility] 16:42 Differential diagnosis: diverticulitis, non-specific abd pain. Data reviewed: [facility] signs, nurses notes. ED course: 46-year-old with recurrent diverticulitis, feels like prior episodes. Patient understands that it is extremely recommended for him to follow-up with surgery given that he is increasing his chances of ending up with an ostomy. Will CT, work-up, if not perforated, will send out with oral antibiotics.. 18:00 ED course: Pt requesting more analgesia prior to DC, will f/u surgery, ER warnings jr given strict return precautions as well. 03/15 16:40 Order name: CBC with Diff; Complete Time: 17:18 jr11 03/15 16:40 Order name: CMP; Complete Time: 17:18 jr11 03/15 16:40 Order name: Lipase; Complete Time: 17:18 11 03/15 16:40 Order name: CT Abd/Pelvis - IV Contrast Only: do not wait for Cr, please scan; Complete jr11 Time: 17:57 03/15 16:40 Order name: IV Saline Lock; Complete Time: 16:52 11 03/15 16:40 Order name: Labs collected and sent; Complete Time: 16:52 11 03/15 16:40 Order name: NPO; Complete Time: 16:40 jr11 Administered Medications: 16:51 Drug: Ketorolac 15 mg Route: IVP; Site: right antecubital; ld1 16:51 Drug: NS 0.9% 1000 ml Route: IV; Rate: 1 bolus; Site: right antecubital; ld1 16:52 Drug: morphine 4 mg Route: IVP; Infused Over: 4 mins; Site: right antecubital; ld1 16:52 Drug: Zofran (Ondansetron) 4 mg Route: IVP; Site: right antecubital; ld1 18:02 Drug: Cipro (ciprofloxacin) 500 mg Route: PO; ld1 18:02 Drug: Flagyl (metroNIDAZOLE) 500 mg Route: PO; ld1 18:02 Drug: Dilaudid (HYDROmorphone) 0.5 mg Route: IVP; Site: right antecubital; ld1 Disposition Summary: 03/15/22 18:01 Discharge Ordered Location: Home jr Condition: Stable jr11 Diagnosis - Diverticulitis of large intestine without perforation or abscess without bleeding jr11 Followup: jr11 - With: Dk Becker MD - When: 1 - 2 days - Reason: Re-evaluation by your physician Discharge Instructions: - Discharge Summary Sheet jr11 - High-Fiber Diet jr11 - Diverticulitis jr11 Forms: - Medication Reconciliation Form jr11 - Thank You Letter jr11 - Antibiotic Education jr11 - Prescription Opioid Use jr11 Prescriptions: - Flagyl 500 mg Oral Tablet - take 1 tablet by ORAL route every 8 hours for 10 days; 30 tablet; Refills: 0, jr11 Product Selection Permitted - Cipro 500 mg Oral Tablet - take 1 tablet by ORAL route every 12 hours for 10 days; 20 tablet; Refills: 0, jr11 Product Selection Permitted - Ultram 50 mg Oral Tablet - take 1 tablet by ORAL route every 6 hours As needed; 12 tablet; Refills: 0, jr11 Product Selection Permitted Signatures: Dispatcher [employer] Gold Garcia RN RN ll1 Cari Kirk, RN RN ld1 Chava Durbin, MD LOPEZ jr11
[2022-03-15] MEDS ORDERED: metroNIDAZOLE 500 MG TABLET ONE (18:11)
[2022-03-15] MEDS ORDERED: CIPROFLOXACIN HCL 500 MG TAB ONE (18:12)
[2022-03-15] MEDS ORDERED: HYDROMORPHONE HCL 0.5 MG/0.5 ML INJ ONE (18:12)
[2022-03-15 18:19] VITALS: TEMP 98.8; O2SAT 100
[2022-03-15 18:22] VITALS: BP 126/72
== END 2022-03-15 18:12 | disposition home or self-care (01) ==
LOC: ER 16:28
DX: K57.32 Diverticulitis of large intestine without perforation or abscess without bleeding (principal)
CPT/HCPCS: 85025; 36415; 83690; 80053; 74177; 96375; 96374; 99284; Q9967; J1170; J7030; J2405